=== PATIENT | male | born 1955 | race Caucasian/White ===

== ENCOUNTER 2020-05-06 07:23 | Outpatient (REF) | payer MEDICARE, SELFPAY ==
[2020-05-06 09:11] LABS: Alanine Aminotransferase 35 U/L (0-40); Albumin Level 4.2 g/dL (3.5-5.0); Alkaline Phosphatase 51 U/L (39-117); Anion Gap 12 (12-20); Aspartate Amino Transferase 31 U/L (5-37); Bilirubin Total 0.9 mg/dL (0.0-1.0); Blood Urea Nitrogen 16 mg/dL (9-16); Calcium 8.6 mg/dL (8.4-10.2); Carbon Dioxide 28 mmol/L (22-29); Chloride 104 mmol/L (96-108); Cholesterol 172 mg/dL; Estimated Glomerular Filt Rate > 60; Glucose Random 96 mg/dL (60-115); HDL Cholesterol 62 mg/dL; LDL Cholesterol Calculated 93 mg/dl; Potassium 4.6 mmol/l (3.3-5.1); Sodium 139 mmol/L (135-145); Total Protein 6.9 g/dL (6.5-8.0); Triglycerides 89 mg/dL
== END 2020-05-06 07:24 | disposition home or self-care (01) ==
LOC: HO.LAB 07:23
PROVIDERS: Visit Provider Internal Medicine
DX: I10 Essential (primary) hypertension (principal); E78.00 Pure hypercholesterolemia, unspecified
CPT/HCPCS: 80053; 80061

== ENCOUNTER 2020-10-09 11:08 | Outpatient (REF) | payer MEDICARE, SELFPAY ==
[2020-10-09 12:24] LABS: COVID-19 Test Negative (Negative)
== END 2020-10-09 11:09 | disposition home or self-care (01) ==
LOC: HO.LAB 11:08
PROVIDERS: Visit Provider Internal Medicine
DX: Z20.822 Contact with and (suspected) exposure to COVID-19 (principal)
CPT/HCPCS: 36415; 87635; C9803

== ENCOUNTER 2020-10-20 07:50 | Day surgery (SDC) | payer MEDICARE, SELFPAY ==
[2020-10-14 20:17] VITALS: BMI 24.3
--- NOTE | 2020-10-16 13:40 | HO.ANESPROP2 ---
Documented by User: Toya Winston 10/16/20 13:41 HPI - Anesthesia Eval Consult details Narrative: 65yo F for Upper Endoscopy and Colonoscopy PMFSH Active Problems Active Problems: All Active Problems (Updated 10/14/20 @ 19:11 by Marietta Moore RN) Ecchymosis (Acute) Past Medical History Medical History Hyperlipidemia Hypertension Myocardial infarction (~1997) Overactive bladder Ulcerative colitis Surgical History Surgical History H/O umbilical hernia repair (~2018) H/O vasectomy History of colonoscopy (~2015) Social History Social History Smoking Status: Never smoker Second Hand Smoke Exposure: No Use of substances other than those prescribed or required for medical reasons: No Advance Directives: No Advance Directives Information Provided: No Advance Directives on File: No Recently lost weight without trying: No Meds Allergies Allergy/AdvReac Type Severity Reaction Status Date / Time No Known Allergies Allergy Verified 10/14/20 20:17 [No Known Allergies*] Home Medications Medication Instructions Recorded Confirmed Last Taken Type aspirin 81 mg tablet,delayed 81 mg PO DAILY 09/29/20 10/20/20 10/15/20 History release atorvastatin 40 mg tablet 40 mg PO DAILY 09/29/20 10/14/20 Unknown History mesalamine 800 mg tablet,delayed 800 mg PO BID 09/29/20 10/14/20 Unknown History release metoprolol tartrate 25 mg tablet 12.5 mg PO BID 09/29/20 10/14/20 10/20/20 History tamsulosin 0.4 mg capsule 0.4 mg PO DAILY 09/29/20 10/14/20 Unknown History tolterodine 4 mg capsule,extended 4 mg PO DAILY 09/29/20 10/14/20 Unknown History release 24 hr Exam Exam Date and Time: October 16, 2020 1340 Height,Weight and Vital Signs: Height 5 ft 11 in Weight 78.925 kg Pertinent Lab Results Pertinent Lab Results: Laboratory Tests 05/06/20 07:35 Sodium 139 Potassium 4.6 Chloride 104 Carbon Dioxide 28 BUN 16 Creatinine 0.94 Assessment and Plan Assessment Anesthesia Assessment: Chart Reviewed Documented by User: Greg Shearer 10/20/20 08:57 PMFSH Past Medical History Medical History Hyperlipidemia Hypertension Myocardial infarction (~1997) Overactive bladder Ulcerative colitis Surgical History Surgical History H/O umbilical hernia repair (~2018) H/O vasectomy History of colonoscopy (~2015) Social History Social History Smoking Status: Never smoker Second Hand Smoke Exposure: No Use of substances other than those prescribed or required for medical reasons: No Advance Directives: No Advance Directives Information Provided: No Advance Directives on File: No Recently lost weight without trying: No Meds Allergies Allergy/AdvReac Type Severity Reaction Status Date / Time No Known Allergies Allergy Verified 10/14/20 20:17 [No Known Allergies*] Home Medications Medication Instructions Recorded Confirmed Last Taken Type aspirin 81 mg tablet,delayed 81 mg PO DAILY 09/29/20 10/20/20 10/15/20 History release atorvastatin 40 mg tablet 40 mg PO DAILY 09/29/20 10/14/20 Unknown History mesalamine 800 mg tablet,delayed 800 mg PO BID 09/29/20 10/14/20 Unknown History release metoprolol tartrate 25 mg tablet 12.5 mg PO BID 09/29/20 10/14/20 10/20/20 History tamsulosin 0.4 mg capsule 0.4 mg PO DAILY 09/29/20 10/14/20 Unknown History tolterodine 4 mg capsule,extended 4 mg PO DAILY 09/29/20 10/14/20 Unknown History release 24 hr Exam Airway Mallampati Class: II TM Dist: >3cm Neck ROM: Full Loose/Missing/Broken Teeth: Yes Heart: [id number] Lungs: cta b/l Assessment and Plan Assessment Anesthesia Assessment: Anesthesia Plan Discussed, PAT Visit and Chart Reviewed Final Anesthetic Review NPO: Yes ASA Class: II Final Preanesthetic Review: No Changes in Pt Med Stat, Meds/Allgs Chart Reviewed, Consent Obtained/Reviewed and Anes Risks/Benef Reviewed Patient Risk: Low Procedure Risk: Low Assessment/Block/Sedation in SS: Assess/Block/Sedation-SS Anesthetic Plan Anesthetic Plan: MAC: and Agree w/ Assess. and Plan Disposition: Standard PACU
[2020-10-20 08:37] VITALS: BP 145/87; PULSE 76; RESP 18; TEMP 36.1; O2SAT 98
[2020-10-20] MEDS: Lactated Ringers 1,000 ML 100 ML IVCONT (08:52)
--- NOTE | 2020-10-20 10:24 | PM.OP ---
Brief Operative Note Date of Service: 10/20/20 Pre-op diagnosis: Nausea, Ulcerative colitis Post-op diagnosis: other (Reflux esophagitis, Hiatal hernia, R/O Dysplasia) Procedure: EGD with biopsies and Colonoscopy to the ceum with biopsies Surgeon: Mitesh Farris Anesthesia: MAC Was an Avionics Technician used for this Procedure?: No Estimated blood loss (mL): 6.0 Pathology: other (A. Descending duodenum B. Gastric antrum C. EG Junction at 35cm D. Ascending colon E. Transverse colon F. Descending colon G. Sigmoid colon H. Rectum) Condition: stable Disposition: PACU
[2020-10-20 10:25] VITALS: BP 117/73; PULSE 74; RESP 16; TEMP 36.8; O2SAT 96
[2020-10-20 10:40] VITALS: BP 130/77; PULSE 79; RESP 16; TEMP 36.8; O2SAT 97
--- NOTE | 2020-10-20 10:54 | OP_ITS ---
SURGEON: Mitesh Farris MD INDICATIONS: The patient presents for evaluation of nausea and long-standing ulcerative colitis. Full consent has been obtained from him for both procedures, including risks of bleeding and perforation. PREOPERATIVE DIAGNOSIS: POSTOPERATIVE DIAGNOSIS: PROCEDURE PERFORMED: Esophagogastroduodenoscopy with biopsies, and colonoscopy to the cecum with biopsies. ESTIMATED BLOOD LOSS: COMPLICATIONS: ANESTHESIA: Monitored anesthesia care. ASSISTANTS: SPECIMENS: PREOPERATIVE DIAGNOSES: Nausea and ulcerative colitis. POSTOPERATIVE DIAGNOSES: Nausea and ulcerative colitis, reflux esophagitis, hiatal hernia, rule out dysplasia, diverticulosis, and internal hemorrhoids. DESCRIPTION OF PROCEDURE: The patient was placed in the left lateral decubitus position. The Olympus video gastroscope was passed in the posterior oropharynx and upper esophagus under direct vision. The scope was passed slowly into the distal esophagus. The gastroesophageal junction appeared at 35 cm. There was some evidence of reflux esophagitis with some edema and friability, but no evidence of any ulceration nor mass. There was no sign of any stricture. The scope easily entered into the stomach. There was a small to moderate-sized hiatal hernia. The scope was advanced to pylorus and duodenum was cannulated to the descending portion. The duodenum including the bulb appeared normal without mass or ulceration. Biopsies were obtained from the 2nd and 3rd portions of duodenum. The scope was withdrawn back into the stomach. The gastric antrum and body appeared normal with good peristalsis. The scope was retroflexed visualizing the proximal stomach carefully, which appeared normal, without any sign of mass or ulceration. The scope was straightened. Biopsies were obtained from the gastric antrum. The scope was withdrawn back into the esophagus. I obtained biopsies at the EG junction at 35 cm. Proximal to this, esophageal mucosa appeared normal. Scope was withdrawn from the patient. He was turned around for the colonoscopy. The digital rectal exam revealed no abnormalities. The Olympus video pediatric colonoscope was entered into the rectum and advanced to the cecum with the assistance of abdominal wall pressure. Once in the cecum, I did identify normal-appearing cecal pouch other than some very minimal chronic changes of colitis. There was no active colitis. There was no mass or ulceration. There was transillumination of light deep in the right lower quadrant. The scope was slowly withdrawn assessing all mucosal surfaces carefully. Preparation was excellent. I did not visualize any sign of colitis, polyps, nor angiodysplasia. I obtained multiple biopsies in the ascending colon, transverse colon, descending colon, sigmoid colon, and rectum. There was a mild amount of sigmoid diverticulosis. In the rectum, scope was retroflexed visualizing internal hemorrhoids, but no other pathology. The scope was straightened out and withdrawn from the patient. He tolerated the procedure well and was returned to the recovery area in stable condition. IMPRESSION: 1. History of ulcerative colitis, rule out dysplasia. 2. Diverticulosis. 3. Internal hemorrhoids. 4. Reflux esophagitis. 5. Hiatal hernia. PLAN: The results of biopsy will be checked. Assuming there is no dysplasia, I would recommend a repeat colonoscopy in 5 years. Given his nausea and endoscopy findings, I shall start him on daily omeprazole 20 mg to see if that can help improve those symptoms since I do suspect he is having some reflux, particularly night since he reports that most of the nausea is in the morning when he wakes up. He was advised to resume aspirin in 48 hours. MD TANJA Bernard/DAX / [id number]
== END 2020-10-20 11:15 | disposition home or self-care (01) ==
PROVIDERS: PCP Internal Medicine; Visit Provider Internal Medicine
PROC: (CPT 45380; principal; 2020-10-20 09:00)
DX: Z12.11 Encounter for screening for malignant neoplasm of colon (principal); K57.30 Diverticulosis of large intestine without perforation or abscess without bleeding; K64.8 Other hemorrhoids; K51.90 Ulcerative colitis, unspecified, without complications; K21.00 Gastro-esophageal reflux disease with esophagitis, without bleeding; K44.9 Diaphragmatic hernia without obstruction or gangrene; I10 Essential (primary) hypertension; I25.2 Old myocardial infarction; E78.5 Hyperlipidemia, unspecified; Z79.82 Long term (current) use of aspirin; Z79.899 Other long term (current) drug therapy
CPT/HCPCS: 45380; 43239; 88305; 88342; J3010

== ENCOUNTER 2020-11-06 10:46 | Emergency (ER) | payer MEDICARE, SELFPAY ==
--- NOTE | ~2020-11-06 | XR_ITS ---
EXAMINATION: XR CHEST CLINICAL INFORMATION: Chest pain COMPARISON: Chest 11/23/2019 TECHNIQUE: 2 views of the chest were obtained. FINDINGS: The lungs are well-expanded and clear. The heart size and pulmonary vascularity is normal. There is moderate spondylosis dorsal spine.. XR/XR chest 2V IMPRESSION: No acute cardiopulmonary process seen.
[2020-11-06 10:56] VITALS: BP 116/87; BP 121/82; PULSE 76; PULSE 90; RESP 18; TEMP 36.8; O2SAT 97; O2SAT 99; BMI 22.8
--- NOTE | 2020-11-06 11:08 | ECG_ITS ---
Test Reason : CHEST PAIN Blood Pressure : / mmHG Vent. Rate : 073 BPM Atrial Rate : 073 BPM P-R Int : 142 ms QRS Dur : 100 ms QT Int : 400 ms P-R-T Axes : 029 -23 006 degrees QTc Int : 440 ms Normal sinus rhythm Normal ECG When compared with ECG of 23-NOV-2019 13:28, No significant change was found Referred By: Leonel Smith Electronically Signed By:INESSA HARDEN MD
[2020-11-06 11:37] VITALS: PULSE 78
[2020-11-06 11:39] LABS: MANUAL DIFF FLAG NO
[2020-11-06] MEDS: Ketorolac Tromethamine 30 MG/ML VIAL IVPUSH (11:43)
[2020-11-06 11:48] LABS: Basophils Percent Auto 0.6 % (0-2); Eosinophils Absolute Auto 0.1 X10*3/uL (0.0-0.4); Eosinophils Percent Auto 1.1 % (0-4); Hematocrit 40.8 % (42-52); Hemoglobin 13.6 g/dl (14.0-18.0); Imm Gran Abs Auto 0.02 X10*3/uL (0.00-0.03); Imm Gran Pct Auto 0.3 % (0.0-0.4); Lymphocytes Absolute Auto 1.2 X10*3/uL (1.2-4.9); Lymphocytes Percent Auto 17.6 % (20-40); Mean Corpuscular HGB Conc 33.3 g/dl (31.0-36.0); Mean Corpuscular Hemoglobin 31.5 pg (27.0-33.0); Mean Corpuscular Volume 94.4 fL (80-98); Mean Platelet Volume 10.1 fL (9.4-12.4); Monocytes Absolute Auto 0.7 X10*3/uL (0.1-1.2); Monocytes Percent Auto 9.9 % (2-11); Neutrophils Absolute Auto 4.9 X10*3/uL (2.0-8.3); Neutrophils Percent Auto 70.5 % (45-73); Platelet Count 190 X10*3/uL (160-400); Red Blood Count 4.32 X10*6/uL (4.60-5.80); Red Cell Distribution Width 11.8 % (11.0-16.0)
[2020-11-06 11:49] LABS: Prothrombin Time 11.9 SEC (10.8-13.0)
[2020-11-06 11:52] LABS: Partial Thromboplastin Time 29.2 SEC (24.1-38.0)
[2020-11-06 12:11] LABS: Alanine Aminotransferase 32 U/L (0-40); Albumin Level 4.3 g/dL (3.5-5.0); Alkaline Phosphatase 51 U/L (39-117); Anion Gap 10 (12-20); Aspartate Amino Transferase 25 U/L (5-37); Bilirubin Total 0.6 mg/dL (0.0-1.0); Blood Urea Nitrogen 16 mg/dL (9-16); Calcium 9.2 mg/dL (8.4-10.2); Carbon Dioxide 27 mmol/L (22-29); Chloride 107 mmol/L (96-108); Creatinine Clr Calc Pharmacy 77.4; Estimated Glomerular Filt Rate > 60; Glucose Random 97 mg/dL (60-115); Potassium 3.9 mmol/L (3.3-5.1); Sodium 140 mmol/L (135-145); Total Protein 6.9 g/dL (6.5-8.0)
[2020-11-06 12:14] LABS: Troponin-I High Sensitivity < 3.5 ng/L (<3.5-35.0)
--- NOTE | 2020-11-06 12:49 | PC.NURSE ---
ambulated and from bathroom and xray w steady gait
[2020-11-06 12:50] VITALS: BP 146/77; PULSE 90; RESP 18; O2SAT 98
--- NOTE | 2020-11-06 13:08 | ED.CHESTPAIN ---
HPI - Chest Pain General Chief Complaint: Chest Pain Stated Complaint: CP X'S 3 DAYS,NON RAD/REPRODD Time Seen by Provider: 11/06/20 10:51 Source: patient Mode of arrival: ambulatory Limitations: no limitations History of Present Illness HPI narrative: 65-year-old male who presents emergency department for evaluation of left-sided intermittent chest pain x3 days and lightheadedness. The patient states that he has had approximately 3 episodes per day. He states the episodes could last minutes to an hour. The episodes were not related to his activity level. States that he has a history of angina and the pain feels different than his anginal pain. Patient states that he woke up this morning at 8:00 a.m. any had the pain. He describes the pain as a constant, sharp pain, the pain is slightly worse with movement but not with breathing. States that the pain is associated with lightheadedness. He denied associated vomiting, shortness of breath, pain radiating to the neck, jaw, arms or back. He states he has been having nausea for approximately 1 month, and has been evaluated by GI and started on omeprazole. Related Data Home Medications Medication Instructions Recorded Confirmed aspirin 81 mg tablet,delayed 81 mg PO DAILY 09/29/20 10/20/20 release atorvastatin 40 mg tablet 40 mg PO DAILY 09/29/20 10/14/20 mesalamine 800 mg tablet,delayed 800 mg PO BID 09/29/20 10/14/20 release metoprolol tartrate 25 mg tablet 12.5 mg PO BID 09/29/20 10/14/20 tamsulosin 0.4 mg capsule 0.4 mg PO DAILY 09/29/20 10/14/20 tolterodine 4 mg capsule,extended 4 mg PO DAILY 09/29/20 10/14/20 release 24 hr Allergies Allergy/AdvReac Type Severity Reaction Status Date / Time No Known Allergies Allergy Verified 10/14/20 20:17 [No Known Allergies*] Review of Systems Review of Systems: Yes all other systems are reviewed and are negative [facility] Past Medical History [facility] Narrative: Social history: Patient denies tobacco use, he is a former smoker but quit over 40 years ago. He drinks 3 beers per day. He denies drug use. Medical History Hyperlipidemia Hypertension Myocardial infarction (~1997) Overactive bladder Ulcerative colitis Surgical History H/O umbilical hernia repair (~2018) H/O vasectomy History of colonoscopy (~2015) Social History Social History Alcohol intake: current Alcohol intake frequency: 0-2 drinks per day Alcohol type: beer Smoking Status: Never smoker Smoked in Last 30 Days: No Second Hand Smoke Exposure: No Use of substances other than those prescribed or required for medical reasons: No Advance Directives: Yes Advance Directives Information Provided: No Advance Directives on File: No Physical Exam Vital Signs: Vital Signs: Last Vital Signs Temp 98.2 F 11/06/20 10:56 Pulse 90 11/06/20 12:50 Resp 18 11/06/20 12:50 BP 146/77 H 11/06/20 12:50 Pulse Ox 98 11/06/20 12:50 Body Mass Index 22.8 Const: General: cooperative and healthy appearing Orientation/consciousness: oriented to person and oriented to place Limitations: no limitations HENMT: Head: Yes normal to inspection, Yes normocephalic and Yes atraumatic Ears: external ears normal General nose exam: Normal external nose present Face and sinus: Yes normal facial exam Mouth: Normal oral and palatal mucosa present Throat: Yes posterior oropharynx normal Eyes: Periorbital: periorbital findings normal Eyelids: Yes eyelids normal Conjunctivae: conjunctivae normal Sclerae: sclerae normal Corneas: corneas normal Pupils: Equal, round and reactive pupils present Direct Ophthalmoscopy: normal light reflex Neck: Neck: Yes full ROM, Yes no lymphadenopathy, Yes no meningeal signs, Yes trachea midline and Yes supple Chest: Chest palpation & inspection: normal inspection of the chest and tenderness (Left chest wall) Resp: Effort & Inspection: normal respiratory effort and able to speak in complete sentences Auscultation: clear to auscultation bilaterally Cardio: Rate: regular rate Rhythm: regular rhythm Heart sounds: S1 normal heart sound present, S2 normal heart sound present and no murmurs GI: Inspection: Yes normal to inspection Palpation (GI): Soft to palpation, nontender, no guarding, not rigid and No hepatosplenomegaly present : General: Yes no CVA tenderness Back/Spine/Pelvis: Back: no CVA tenderness Cervical Spine: normal cervical lordosis Thoracic/Lumbar Spine: thoracic and lumbar spine normal to inspection Skin: Lesions: no lesions Rashes: no rashes Wounds: no wounds Neuro: General: oriented to person, oriented to place and no meningeal signs Cranial nerves: Yes Equal, round and reactive pupils present Cognition (Neuro): normal cognition Motor exam (neuro): 5/5 motor strength present throughout Extrem: General: Yes normal to inspection and Yes full ROM Psych: Appearance: well kempt Mental Status: mental status grossly normal Speech and movement: Normal speech and movement present Affect: normal affect Attitude: cooperative Thought process: Normal thought process present Thought content: Normal thought content present Course Course Course Narrative: 65-year-old male who presents emergency department for evaluation of left-sided intermittent chest pain x3 days, pain became constant this morning, pain associated with dizziness. Vital signs are unremarkable. The patient does have a history of angina but that today's pain is different than his anginal pain. Today's pain also was not related to his activity level. Physical examination did reveal some slight left-sided chest wall tenderness otherwise was unremarkable. I did order cardiac workup on the patient. Patient was ordered to get Toradol 30 mg IV. 1318: Patient's laboratory evaluation was unremarkable. The patient had a nondetectable troponin. Chest x-ray was normal. Twelve EKG revealed no evidence for ischemia or myocardial injury. I did discuss these findings with the patient. Patient's presentation and physical findings are consistent with chest wall pain. Patient did get improvement with the IV Toradol. He was advised to take ibuprofen Tylenol for pain. He was given verbal and printed instructions and discharge to home. MDM - Chest Pain Lab Data Result diagrams: 11/06/20 11:34 11/06/20 11:34 Labs: Lab Results 11/06/20 11/06/20 11/06/20 Range/Units 11:33 11:34 11:34 WBC 7.0 (4.8-10.8) X10*3/uL RBC 4.32 L (4.60-5.80) X10*6/uL Hgb 13.6 L (14.0-18.0) g/dl Hct 40.8 L (42-52) % MCV 94.4 (80-98) fL MCH 31.5 (27.0-33.0) pg MCHC 33.3 (31.0-36.0) g/dl RDW 11.8 (11.0-16.0) % Plt Count 190 (160-400) X10*3/uL MPV 10.1 (9.4-12.4) fL Immature Gran % (Auto) 0.3 (0.0-0.4) % Neut % (Auto) 70.5 (45-73) % Lymph % (Auto) 17.6 L (20-40) % [place] % (Auto) 9.9 (2-11) % Eos % (Auto) 1.1 (0-4) % Baso % (Auto) 0.6 (0-2) % Lymph # (Auto) 1.2 (1.2-4.9) X10*3/uL [place] # (Auto) 0.7 (0.1-1.2) X10*3/uL Eos # (Auto) 0.1 (0.0-0.4) X10*3/uL Baso # (Auto) 0.0 (0.0-0.2) X10*3/uL Abs Immat Gran (auto) 0.02 (0.00-0.03) X10*3/uL Absolute Neuts (auto) 4.9 (2.0-8.3) X10*3/uL Absolute Nucleated RBC 0.000 (0.0-0.012) X10*3/uL Nucleated RBC % (auto) 0.0 (0.0-0.2) /100WBC PT 11.9 (10.8-13.0) SEC INR 1.0 (0.9-1.1) APTT 29.2 (24.1-38.0) SEC Sodium (135-145) mmol/L Potassium (3.3-5.1) mmol/L Chloride (96-108) mmol/L Carbon Dioxide (22-29) mmol/L Anion Gap (12-20) BUN (9-16) mg/dL Creatinine (0.5-1.4) mg/dL Estim Creat Clear Calc Estimated GFR Random Glucose (60-115) mg/dL Calcium (8.4-10.2) mg/dL Total Bilirubin (0.0-1.0) mg/dL AST (5-37) U/L ALT (0-40) U/L Alkaline Phosphatase (39-117) U/L Troponin I High Sens < 3.5 (<3.5-35.0) ng/L Total Protein (6.5-8.0) g/dL Albumin (3.5-5.0) g/dL // Range/Units 11:34 WBC (4.8-10.8) X10*3/uL RBC (4.60-5.80) X10*6/uL Hgb (14.0-18.0) g/dl Hct (42-52) % MCV (80-98) fL MCH (27.0-33.0) pg MCHC (31.0-36.0) g/dl RDW (11.0-16.0) % Plt Count (160-400) X10*3/uL MPV (9.4-12.4) fL Immature Gran % (Auto) (0.0-0.4) % Neut % (Auto) (45-73) % Lymph % (Auto) (20-40) % [place] % (Auto) (2-11) % Eos % (Auto) (0-4) % Baso % (Auto) (0-2) % Lymph # (Auto) (1.2-4.9) X10*3/uL [place] # (Auto) (0.1-1.2) X10*3/uL Eos # (Auto) (0.0-0.4) X10*3/uL Baso # (Auto) (0.0-0.2) X10*3/uL Abs Immat Gran (auto) (0.00-0.03) X10*3/uL Absolute Neuts (auto) (2.0-8.3) X10*3/uL Absolute Nucleated RBC (0.0-0.012) X10*3/uL Nucleated RBC % (auto) (0.0-0.2) /100WBC PT (10.8-13.0) SEC INR (0.9-1.1) APTT (24.1-38.0) SEC Sodium 140 (135-145) mmol/L Potassium 3.9 (3.3-5.1) mmol/L Chloride 107 (96-108) mmol/L Carbon Dioxide 27 (22-29) mmol/L Anion Gap 10 L (12-20) BUN 16 (9-16) mg/dL Creatinine 0.92 (0.5-1.4) mg/dL Estim Creat Clear Calc 77.4 Estimated GFR > 60 Random Glucose 97 (60-115) mg/dL Calcium 9.2 D (8.4-10.2) mg/dL Total Bilirubin 0.6 (0.0-1.0) mg/dL AST 25 (5-37) U/L ALT 32 (0-40) U/L Alkaline Phosphatase 51 (39-117) U/L Troponin I High Sens (<3.5-35.0) ng/L Total Protein 6.9 (6.5-8.0) g/dL Albumin 4.3 (3.5-5.0) g/dL ECG Data ECG #1: Attestation: I personally reviewed and interpreted this ECG as follows: Interpretation: 1124: Normal sinus rhythm with a normal ID interval, slightly prolonged QRS interval 100 milliseconds, normal QTC interval. Patient had an inverted T-wave in lead 3. There was no ST segment elevation or depression. There is no old EKG for comparison. This is a normal EKG. Discharge Plan Discharge Clinical Impression: Chest pain Qualifiers: Chest pain type: other chest pain Qualified Code(s): R07.89 - Other chest pain Patient Disposition: Home, Self-Care Instructions: Costochondritis (ED) Additional Instructions: Your laboratory evaluation was unremarkable. Your troponin was below detectable limits. This is reassuring suggesting that he did not have heart damage as the cause of your pain. Your chest x-ray was normal. Your EKG was unremarkable. Your presentation and findings are consistent with inflammation of the chest wall/costochondritis. Take Advil ( ibuprofen) 200 mg pills, 2 pills every 6 hours as needed for pain. Take Tylenol (acetaminophen) 500 mg pills, 2 pills every 4 to 6 hours as needed for pain. Follow-up with your doctor in 2 days. Please return to the emergency department if your symptoms get worse or if you develop any symptoms that are concerning to you. Prescriptions: No Action aspirin [Adult Low Dose Aspirin] 81 mg tablet,delayed release (DR/EC) 81 mg PO DAILY RF: 0 tamsulosin 0.4 mg capsule 0.4 mg PO DAILY RF: 0 mesalamine 800 mg tablet,delayed release (DR/EC) 800 mg PO BID RF: 0 tolterodine 4 mg capsule,extended release 24hr 4 mg PO DAILY RF: 0 atorvastatin 40 mg tablet 40 mg PO DAILY RF: 0 metoprolol tartrate 25 mg tablet 12.5 mg PO BID RF: 0
== END 2020-11-06 13:34 | disposition home or self-care (01) ==
PROVIDERS: Emergency Provider Emergency Medicine Emergency Medical Services; PCP Internal Medicine
DX: R07.89 Other chest pain (principal); I10 Essential (primary) hypertension; E78.5 Hyperlipidemia, unspecified; I25.2 Old myocardial infarction
CPT/HCPCS: 36415; 71046; 80053; 84484; 85025; 85610; 85730; 93005; 96374; 99284; 99285; J1885

== ENCOUNTER 2020-11-25 07:30 | Outpatient (REF) | payer MEDICARE, SELFPAY ==
[2020-11-25 08:23] LABS: Hematocrit 43.7 % (42-52); Hemoglobin 14.4 g/dl (14.0-18.0); Mean Corpuscular Hemoglobin 31.4 pg (27.0-33.0); Mean Corpuscular Volume 95.4 fL (80-98); Mean Platelet Volume 10.4 fL (9.4-12.4); Platelet Count 171 X10*3/uL (160-400); Red Blood Count 4.58 X10*6/uL (4.60-5.80); Red Cell Distribution Width 11.9 % (11.0-16.0); White Blood Count 7.1 X10*3/uL (4.8-10.8)
[2020-11-25 08:50] LABS: Alanine Aminotransferase 22 U/L (0-40); Albumin Level 4.2 g/dL (3.5-5.0); Alkaline Phosphatase 55 U/L (39-117); Anion Gap 11 (12-20); Aspartate Amino Transferase 22 U/L (5-37); Bilirubin Total 1.2 mg/dL (0.0-1.0); Blood Urea Nitrogen 16 mg/dL (9-16); Calcium 9.1 mg/dL (8.4-10.2); Carbon Dioxide 29 mmol/L (22-29); Chloride 106 mmol/L (96-108); Cholesterol 173 mg/dL; Estimated Glomerular Filt Rate > 60; Glucose Random 107 mg/dL (60-115); HDL Cholesterol 59 mg/dL; LDL Cholesterol Calculated 103 mg/dl; Potassium 4.5 mmol/L (3.3-5.1); Sodium 141 mmol/L (135-145); Total Protein 6.8 g/dL (6.5-8.0); Triglycerides 55 mg/dL
[2020-11-25 08:56] LABS: Thyroid Stimulating Hormone 1.38 uIU/mL (0.32-4.0)
[2020-11-25 09:24] LABS: Glucose Urine UA NEG (NEG); Leukocyte Esterase Urine NEG (NEG); Nitrite Urine NEG (NEG); PH 7.5 (5.0-8.0); Specific Gravity - Urine 1.015 (1.005-1.025); Urine Blood NEG (NEG); Urine Ketones NEG (NEG); Urine Protein 1+ MG/DL (NEG-TRACE)
[2020-11-25 09:25] LABS: Appearance Urine HAZY; Color Urine YELLOW
[2020-11-25 09:43] LABS: Amorphous Sediment Urine TRACE /LPF; RBC Urine 0 /HPF (0); Squamous Epithelial Cell Urine TRACE /LPF; WBC Urine 0-2 /HPF (0-4)
== END 2020-11-25 07:31 | disposition home or self-care (01) ==
LOC: HO.LAB 07:30
PROVIDERS: PCP Internal Medicine; Visit Provider Internal Medicine
DX: E78.00 Pure hypercholesterolemia, unspecified (principal); I10 Essential (primary) hypertension
CPT/HCPCS: 36415; 80053; 80061; 81001; 84443; 85027

== ENCOUNTER 2021-07-14 11:32 | Outpatient (REF) | payer MEDICARE, SELFPAY ==
[2021-07-14 14:21] LABS: Prostate Specific Antigen 1.55 ng/mL (<0.05-4.0)
== END 2021-07-14 11:33 | disposition home or self-care (01) ==
LOC: HO.10HDL 11:32
PROVIDERS: Absent Provider Internal Medicine; Visit Provider Urology
DX: Z12.5 Encounter for screening for malignant neoplasm of prostate (principal); N40.1 Benign prostatic hyperplasia with lower urinary tract symptoms
CPT/HCPCS: 36415; 84153

== ENCOUNTER 2022-06-01 08:20 | Outpatient (REF) | payer MEDICARE, SELFPAY ==
[2022-06-01 10:51] LABS: MANUAL DIFF FLAG NO
[2022-06-01 11:05] LABS: Basophils Absolute Auto 0.1 X10*3/uL (0.0-0.2); Basophils Percent Auto 0.8 % (0-2); Eosinophils Absolute Auto 0.3 X10*3/uL (0.0-0.4); Eosinophils Percent Auto 4.1 % (0-4); Hematocrit 41.4 % (42.0-52.0); Hemoglobin 13.8 g/dl (14.0-18.0); Imm Gran Abs Auto 0.01 X10*3/uL (0.00-0.03); Imm Gran Pct Auto 0.2 % (0.0-0.4); Lymphocytes Absolute Auto 1.7 X10*3/uL (1.2-4.9); Lymphocytes Percent Auto 26.3 % (20-40); Mean Corpuscular HGB Conc 33.3 g/dl (31.0-36.0); Mean Corpuscular Hemoglobin 31.8 pg (27.0-33.0); Mean Corpuscular Volume 95.4 fL (80.0-98.0); Mean Platelet Volume 11.4 fL (9.4-12.4); Monocytes Absolute Auto 0.6 X10*3/uL (0.1-1.2); Monocytes Percent Auto 9.9 % (2-11); Neutrophils Absolute Auto 3.7 x10*3/uL (2.0-8.3); Neutrophils Percent Auto 58.7 % (45-73); Platelet Count 181 X10*3/uL (160-400); Red Blood Count 4.34 X10*6/uL (4.60-5.80); Red Cell Distribution Width 11.9 % (11.0-16.0); White Blood Count 6.4 X10*3/uL (4.8-10.8)
[2022-06-01 11:46] LABS: Alanine Aminotransferase 30 U/L (0-40); Albumin Level 4.2 g/dL (3.5-5.0); Alkaline Phosphatase 55 U/L (39-117); Anion Gap 11 (12-20); Aspartate Amino Transferase 28 U/L (5-37); Bilirubin Total 1.1 mg/dL (0.0-1.0); Blood Urea Nitrogen 16 mg/dL (9-16); Calcium 8.8 mg/dL (8.4-10.2); Carbon Dioxide 27 mmol/L (22-29); Chloride 106 mmol/L (96-108); Cholesterol 177 mg/dL; Estimated Glomerular Filt Rate > 60; Free T4 (Free Thyroxine) 0.93 ng/dL (0.71-1.85); Glucose Fasting 97 mg/dL (60-99); HDL Cholesterol 57 mg/dL; LDL Cholesterol Calculated 105 mg/dl; Sodium 140 mmol/L (135-145); Thyroid Stimulating Hormone 1.73 uIU/mL (0.32-4.0); Total Protein 6.8 g/dL (6.5-8.0); Triglycerides 79 mg/dL
== END 2022-06-01 08:21 | disposition home or self-care (01) ==
LOC: HO.10HDL 08:20
PROVIDERS: Absent Provider Internal Medicine; Referring Provider Urology; Visit Provider Internal Medicine
DX: E78.00 Pure hypercholesterolemia, unspecified (principal); I10 Essential (primary) hypertension
CPT/HCPCS: 36415; 80053; 80061; 84439; 84443; 85025

== ENCOUNTER 2022-06-30 10:13 | Outpatient (REF) | payer MEDICARE, SELFPAY ==
[2022-06-30 12:09] LABS: Prostate Specific Antigen 0.53 ng/mL (<0.05-4.0)
== END 2022-06-30 10:14 | disposition home or self-care (01) ==
LOC: HO.10HDL 10:13
PROVIDERS: Absent Provider Internal Medicine; Visit Provider Physician Assistant
DX: Z12.5 Encounter for screening for malignant neoplasm of prostate (principal); N32.81 Overactive bladder
CPT/HCPCS: 36415; 84153

== ENCOUNTER 2022-12-29 07:22 | Outpatient (REF) | payer MEDICARE, SELFPAY ==
[2022-12-29 07:38] LABS: MANUAL DIFF FLAG NO
[2022-12-29 08:49] LABS: Basophils Absolute Auto 0.1 X10*3/uL (0.0-0.2); Basophils Percent Auto 0.8 % (0-2); Eosinophils Absolute Auto 0.3 X10*3/uL (0.0-0.4); Eosinophils Percent Auto 4.6 % (0-4); Hematocrit 44.5 % (42.0-52.0); Hemoglobin 14.8 g/dl (14.0-18.0); Imm Gran Abs Auto 0.02 X10*3/uL (0.00-0.03); Imm Gran Pct Auto 0.3 % (0.0-0.4); Lymphocytes Absolute Auto 2.1 X10*3/uL (1.2-4.9); Lymphocytes Percent Auto 28.2 % (20-40); Mean Corpuscular HGB Conc 33.3 g/dl (31.0-36.0); Mean Corpuscular Hemoglobin 31.7 pg (27.0-33.0); Mean Corpuscular Volume 95.3 fL (80.0-98.0); Mean Platelet Volume 10.9 fL (9.4-12.4); Monocytes Absolute Auto 0.7 X10*3/uL (0.1-1.2); Monocytes Percent Auto 9.8 % (2-11); Neutrophils Absolute Auto 4.2 x10*3/uL (2.0-8.3); Neutrophils Percent Auto 56.3 % (45-73); Platelet Count 185 X10*3/uL (160-400); Red Blood Count 4.67 X10*6/uL (4.60-5.80); Red Cell Distribution Width 12.2 % (11.0-16.0); White Blood Count 7.5 X10*3/uL (4.8-10.8)
[2022-12-29 09:30] LABS: Alanine Aminotransferase 28 U/L (0-40); Albumin Level 4.1 g/dL (3.5-5.0); Alkaline Phosphatase 59 U/L (39-117); Anion Gap 13 (12-20); Aspartate Amino Transferase 25 U/L (5-37); Bilirubin Total 0.9 mg/dL (0.0-1.0); Blood Urea Nitrogen 17 mg/dL (9-16); Calcium 9.2 mg/dL (8.4-10.2); Carbon Dioxide 24 mmol/L (22-29); Chloride 108 mmol/L (96-108); Cholesterol 180 mg/dL; Estimated Glomerular Filt Rate > 60; Glucose Random 100 mg/dL (60-115); HDL Cholesterol 56 mg/dL; LDL Cholesterol Calculated 111 mg/dl; Potassium 4.1 mmol/L (3.3-5.1); Sodium 141 mmol/L (135-145); Total Protein 7.1 g/dL (6.5-8.0); Triglycerides 68 mg/dL
[2022-12-29 09:47] LABS: Thyroid Stimulating Hormone 2.49 uIU/mL (0.32-4.0)
== END 2022-12-29 07:23 | disposition home or self-care (01) ==
LOC: HO.LAB 07:22
PROVIDERS: PCP Internal Medicine; Visit Provider Internal Medicine
DX: R00.2 Palpitations (principal); I10 Essential (primary) hypertension; K51.90 Ulcerative colitis, unspecified, without complications; E78.00 Pure hypercholesterolemia, unspecified; R32 Unspecified urinary incontinence; R73.01 Impaired fasting glucose
CPT/HCPCS: 36415; 80053; 80061; 84443; 85025

== ENCOUNTER 2023-01-19 10:29 | Outpatient (AMB) | payer MEDICARE, SELFPAY ==
--- NOTE | 2023-01-19 10:32 | A.OFFVIS_ITS ---
Intake Vital Signs 01/19/23 10:33 Height 5 ft 9 in Weight 179 lb 14.355 oz BMI 26.6 BP 120/84 Blood Pressure Location Lt brachial Position Sitting Pulse 66 Pulse Source Monitor Intake Visit Reasons: Re-establish care/Cam[place]/Chest pain, palpitations Intake Note: New patient visit with EKG for evaluation of chest pain and palpitations, patient re-establishing care last seen 12/20/2019. 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 Accompanied by: Self / Same As Patient Allergies No Known Allergies [No Known Allergies*] Allergy (Verified 01/19/23 10:34) Medication List - Last Reconciled 01/19/23 by Crow Negrete MD aspirin (Adult Low Dose Aspirin) 81 mg PO DAILY atorvastatin 40 mg PO DAILY cholecalciferol (vitamin D3) 25 mcg PO DAILY lorazepam 0.5 mg PO DAILY PRN mecobalamin (vitamin B12) 500 mcg PO DAILY mesalamine 800 mg PO BID metoprolol tartrate 12.5 mg PO BID mirabegron ER (Myrbetriq) 50 mg PO DAILY omeprazole 20 mg PO DAILY tamsulosin 0.4 mg PO DAILY HPI HPI Comments History of Present Illness Details Thank you for ease tablet jose watt's in cardiology consultation today. He is a pleasant 67-year-old male with prior history of anxiety, hyperlipidemia, presents to me because he is having some discomfort in the chest. In mid November while he was walking his usual walked he developed retros ternal chest pressure which limited his walking capacity and had to stop and return back home. He then relax and the symptoms resolved. Since then he has not had recurrent exertional chest discomfort which is surprising. He said he has been doing his [employer] work yesterday at extensive pace and had no recurrent chest pain. However is also bothered by symptoms of palpitations. Two episodes 1 which woke him up from sleep when he fell rapid heart rate and other own while he was doing exertional activity at home. He had no associated lightheadedness, shortness of breath. No syncopal episodes. Denies any other symptoms. He said usually remains very active. He denies any heart failure symptoms. Takes all his medications regularly. [facility] Medical History Hyperlipidemia Hypertension Myocardial infarction (~1997) Overactive bladder Ulcerative colitis Surgical History H/O umbilical hernia repair (~2018) H/O vasectomy History of colonoscopy (~2015) Family History Mother Colon cancer Father Heart attack Social History Alcohol intake: current Alcohol intake frequency: 0-2 drinks per day Alcohol type: beer Patient Tobacco Use Status: Former Tobacco user Quit Date: 1977 Years Smoked: 5 +/- Second Hand Smoke Exposure: No Review of Systems Const Denies chills, Denies daytime sleepiness, Denies fatigue, Denies fever(s), Denies frequent falls, Denies night sweats, Denies snoring, Denies weakness, Denies weight gain and Denies weight loss Eyes Denies loss of vision ENT Denies dizziness and Denies hearing loss Card Denies chest pain, Denies chest pain with activity, Denies syncope, Denies rapid heart rate, Denies edema, Denies claudication, Denies leg edema, Denies lightheadedness, Denies palpitations, Denies dyspnea, Denies dyspnea on exertion and Denies orthopnea Resp Denies cough, Denies excessive phlegm production, Denies dyspnea, Denies dyspnea on exertion, Denies snoring and Denies wheezing GI Denies abdominal pain, Denies hematochezia, Denies change in bowel habits, Denies change in stool character, Denies heartburn, Denies nausea and Denies vomiting Denies hematuria, Denies dysuria and Denies urinary frequency Musc Denies arthralgias, Denies muscle weakness, Denies numbness and Denies tingling Skin/Breast Denies nail changes and Denies rash Neuro Denies Abnormal speech present, Denies dizziness, Denies syncope, Denies frequent falls, Denies loss of vision, Denies memory loss, Denies numbness, Denies tingling and Denies weakness Psych Denies depression and Denies memory loss Endo Denies fatigue and Denies palpitations Aller/Immun Denies wheezing Physical Exam Vital Signs: Last Vital Signs Pulse 66 01/19/23 10:33 BP 120/84 01/19/23 10:33 BMI result Body Mass Index 26.6 Const General: cooperative, comfortable, no acute distress, well developed, alert, awake, Physically active and anxious Nutritional Appearance: average body habitus and well nourished Orientation/consciousness: patient oriented x3 Limitations: no limitations HEENT Head: Yes normocephalic and Yes atraumatic Neck Neck: Yes trachea midline, Yes supple and Yes no JVD Chest Chest palpation & inspection: normal inspection of the chest Resp Effort & Inspection: normal respiratory effort Auscultation: clear to auscultation bilaterally Cardio Jugular venous distension: no JVD Palpation: normal PMI Rate: regular rate Rhythm: regular rhythm Heart sounds: S1 normal heart sound present, S2 normal heart sound present, no click, no gallops, no murmurs and no rubs GI Auscultation: normal bowel sounds Skin General skin exam: no rashes or lesions noted Neuro General: patient oriented x3 and no focal motor deficits Speech: No Abnormal speech present Extrem General: Yes no clubbing, cyanosis or edema Office Procedures EKG Details: EKG shows normal sinus rhythm with normal EKG [id number], Complete Assessment & Plan Assessment & Plan (1) Exertional chest pain: Code(s): R07.9 - Chest pain, unspecified Plan: Exertional chest pain in this 67-year-old gentleman with multiple risk factors including family history hyperlipidemia. He had workup done 3 years ago for stress-induced chest discomfort which at high workload had shown normal treadmill stress test. However he has significant risk factors and likelihood of obstructive coronary artery disease is high. Would suggest him to undergo coronary CTA for further assessment of his symptoms. Also suggest an echocardiogram to assess LV systolic and diastolic function as well as to evaluate for LVH and/or pulmonary hypertension. These tests will be scheduled in near future. Further treatment based on the findings. If he has significant obstructive coronary artery disease may require invasive cardiac catheterization. This was discussed with him. Currently continue metoprolol therapy. Advised to seek emergency care if he has sudden-onset significant chest pressure that is not relieved with resting. (2) Palpitations: Code(s): R00.2 - Palpitations Plan: Symptoms of palpitations which could represent either extra systoles and/or short runs of SVT/atrial fibrillation. Would suggest a 30 day event monitor. Further treatment based on the findings for now continue metoprolol therapy. Avoidance of stimulants was discussed. Stress mitigation strategies to be pursued. Will follow up in the clinic in 2 months time, sooner p.r.n.. Thank you for allowing me to partake in his care Coding Level of Care Code New Pt Level 4 (46342) Diagnoses Exertional chest pain R07.9 Palpitations R00.2 CPT Codes EKG - CPT: 17300-[id number], Complete ([id number])
[2023-01-19 10:33] VITALS: BP 120/84; PULSE 66; BMI 26.6
== END 2023-01-19 10:56 | disposition home or self-care (01) ==
PROVIDERS: PCP Internal Medicine; Referring Provider Internal Medicine; Visit Provider Internal Medicine Cardiovascular Disease
DX: R07.9 Chest pain, unspecified (principal); R00.2 Palpitations
CPT/HCPCS: 93010; 99214

== ENCOUNTER → 2023-01-19 10:29 | Outpatient (BNVA) | payer MEDICARE, SELFPAY | PROVIDERS: PCP Internal Medicine; Referring Provider Internal Medicine; Visit Provider Internal Medicine Cardiovascular Disease | DX: R07.9 Chest pain, unspecified (principal); R00.2 Palpitations | CPT/HCPCS: 93005 ==

== ENCOUNTER 2023-02-24 08:22 | Outpatient (REF) | payer MEDICARE, SELFPAY ==
[2023-02-24 09:05] LABS: Anion Gap 10 (12-20); Blood Urea Nitrogen 14 mg/dL (9-16); Calcium 9.1 mg/dL (8.4-10.2); Carbon Dioxide 29 mmol/L (22-29); Chloride 106 mmol/L (96-108); Estimated Glomerular Filt Rate > 60; Glucose Random 143 mg/dL (60-115); Potassium 4.6 mmol/L (3.3-5.1); Sodium 140 mmol/L (135-145)
== END 2023-02-24 08:23 | disposition home or self-care (01) ==
LOC: HO.LAB 08:22
PROVIDERS: PCP Internal Medicine; Visit Provider Internal Medicine Cardiovascular Disease
DX: R07.9 Chest pain, unspecified (principal)
CPT/HCPCS: 36415; 80048

== ENCOUNTER 2023-04-05 09:58 | Outpatient (AMB) | payer MEDICARE, SELFPAY ==
[2023-04-05 10:00] VITALS: BP 120/82; PULSE 98; BMI 27.2
--- NOTE | 2023-04-05 10:00 | A.OFFVIS_ITS ---
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 Allergies No Known Allergies [No Known Allergies*] Allergy (Verified 04/05/23 10:03) Medication List - Last Reconciled 04/05/23 by RC Bello aspirin (Adult Low Dose Aspirin) 81 mg PO DAILY atorvastatin 40 mg PO DAILY cholecalciferol (vitamin D3) 25 mcg PO DAILY lorazepam 0.5 mg PO DAILY PRN mecobalamin (vitamin B12) 500 mcg PO DAILY mesalamine 800 mg PO BID metoprolol tartrate 12.5 mg PO BID mirabegron ER (Myrbetriq) 50 mg PO DAILY omeprazole 20 mg PO DAILY tamsulosin 0.4 mg PO DAILY HPI f/up 30 day/ echo/ cta/ NS HPI Details Stone is a 67-year-old male past medical history of hypertension and hyperlipidemia who recently reported exertional chest discomfort. He underwent a coronary CTA scan and presents for follow-up. Today he reports that he has not had any recurrent exertional chest discomfort like he had back in November. He has had some soreness in the chest region, mostly on the left that can be brought on by certain positions such as raising his left arm. In the past he was diagnosed with costochondritis. He denies shortness of breath, presyncope, syncope, PND, orthopnea or edema. He had previously described 1 episode of heart palpitations when he was doing extreme exertion. He has not noticed any recurrent episodes of palpitations since that time. This is not a concern for him at present. He has been taking his meds as directed. [facility] Medical History (Updated 04/05/23 @ 12:05 by RC Bello) Myocardial infarction (~1997) Overactive bladder Hypertension Hyperlipidemia Ulcerative colitis Surgical History H/O umbilical hernia repair (~2018) H/O vasectomy History of colonoscopy (~2015) Family History Mother Colon cancer Father Heart attack Social History Alcohol intake: current Alcohol intake frequency: 0-2 drinks per day Alcohol type: beer Patient Tobacco Use Status: Former Tobacco user Quit Date: 1977 Years Smoked: 5 +/- Second Hand Smoke Exposure: No Review of Systems Const All systems reviewed & are unremarkable except as noted in HPI and below Card Reports chest pain Physical Exam Vital Signs: Last Vital Signs Pulse 98 04/05/23 10:00 BP 120/82 04/05/23 10:00 BMI result Body Mass Index 27.2 Const General: cooperative, healthy appearing, comfortable and no acute distress Orientation/consciousness: patient oriented x3 Neck Neck: Yes normal visual inspection and Yes no JVD Resp Effort & Inspection: normal respiratory effort Auscultation: clear to auscultation bilaterally, no crackles, no rales, no rhonchi and no wheezes Cardio Jugular venous distension: no JVD Rate: regular rate Rhythm: regular rhythm Heart sounds: S1 normal heart sound present, S2 normal heart sound present, no murmurs and no rubs Neuro General: patient oriented x3 Extrem General: Yes normal to inspection Psych Appearance: grossly normal Mental Status: mental status grossly normal Speech and movement: Normal speech and movement present Assessment & Plan Assessment & Plan (1) Exertional chest pain: Code(s): R07.9 - Chest pain, unspecified Plan: Episode of exertional chest discomfort that occurred while walking back in November 2022. No recurrent episodes since that time. He does have atypical sounding chest discomfort, likely chest wall in nature. Cardiac risk factors of hypertension and hyperlipidemia. He underwent a CTA of the coronary arteries on 03/04/2023 showing left main mild calcification less than 25% stenosis, lad mild calcification proximally less than 40% stenosis, left circumflex normal, RCA mild calcification no significant stenosis. Reviewed this report with him in detail. At this time he has nonobstructive coronary artery disease. His chest discomfort is not likely cardiac in nature. Signs and symptoms of angina reviewed. Will have him continue on aspirin 81 mg daily. Atorvastatin with ideal LDL goal less than 70. Labs done 12/29/2022 showed LDL 111. Will increase his atorvastatin up to 80 mg daily, as it seems his labs were done at 40 mg daily. Recommend fasting lipid profile again in 2-3 months. Will check echocardiogram to assess for any structural heart disease, plan to call him with results. Cardiology follow-up in 6 months, sooner if needed. (2) CAD (coronary atherosclerotic disease): Comment: CTA of coronary arteries 03/04/2023, left main mild calcifications less than 25% stenosis, proximal LAD less than 40% stenosis, left circumflex normal, RCA mild calcification, no significant stenosis Code(s): I25.10 - Atherosclerotic heart disease of [place] coronary artery without angina pectoris Qualifiers: Associated angina: without angina Coronary Disease-Associated Artery/Lesion type: [place] artery [place] vs. transplanted heart: [place] heart Qualified Code(s): I25.10 - Atherosclerotic heart disease of [place] coronary artery without angina pectoris Plan: Nonobstructive coronary artery disease (3) Palpitations: Code(s): R00.2 - Palpitations Plan: On last visit he reported an episode of heart palpitations following extreme exertional activity. He has not had recurrent palpitations since that time. This is not a concern for him at present. Will hold off on cardiac monitoring. (4) Hypertension: Code(s): I10 - Essential (primary) hypertension Qualifiers: Hypertension type: primary hypertension Qualified Code(s): I10 - Essential (primary) hypertension Plan: Well controlled at present. (5) Hyperlipidemia: Code(s): E78.5 - Hyperlipidemia, unspecified Qualifiers: Hyperlipidemia type: unspecified Qualified Code(s): E78.5 - Hyperlipidemia, unspecified Plan: LDL goal less than 70 in patient with CAD. Not optimally controlled at present. Increasing atorvastatin as above Orders: Orders CA echo transthoracic complete Today I10 - Essential (primary) hypertension, I25.10 - Atherosclerotic heart disease of [place] coronary artery without angina pectoris Medications: New atorvastatin Dose increased from 40mg up to 80mg for cholesterol control 80 mg PO BEDTIME 90 tabs 3RF Coding Level of Care Code Est Pt Level 3 (01913) Diagnoses Exertional chest pain R07.9 Atherosclerosis of [place] coronary artery of [place] heart without angina pectoris I25.10 Associated angina: without angina Coronary Disease-Associated Artery/Lesion type: [place] artery [place] vs. transplanted heart: [place] heart Palpitations R00.2 Primary hypertension I10 Hypertension type: primary hypertension Hyperlipidemia, unspecified hyperlipidemia type E78.5 Hyperlipidemia type: unspecified Time Spent (min) 22
== END 2023-04-05 10:32 | disposition home or self-care (01) ==
PROVIDERS: PCP Internal Medicine; Visit Provider Nurse Practitioner Family
DX: R07.9 Chest pain, unspecified (principal); I25.10 Atherosclerotic heart disease of native coronary artery without angina pectoris; R00.2 Palpitations; I10 Essential (primary) hypertension; E78.5 Hyperlipidemia, unspecified
CPT/HCPCS: 99213

== ENCOUNTER → 2023-04-05 09:58 | Outpatient (BNVA) | payer MEDICARE, SELFPAY | PROVIDERS: PCP Internal Medicine; Visit Provider Nurse Practitioner Family | DX: I25.10 Atherosclerotic heart disease of native coronary artery without angina pectoris (principal); I10 Essential (primary) hypertension; R07.9 Chest pain, unspecified; R00.2 Palpitations; E78.5 Hyperlipidemia, unspecified | CPT/HCPCS: 99212 ==

== ENCOUNTER → 2023-05-03 09:50 | Outpatient (REF) | payer MEDICARE, SELFPAY ==
--- NOTE | 2023-05-03 09:52 | CA_ITS ---
Transthoracic Echocardiogram Patient (Last, First, Middle): Stone Darling T Gender: Male Date of : 1955 Age: 67 Procedure Date: 05/03/2023 Procedure Type: Transthoracic Echocardiogram Location: OP Height: 180.34 cm Weight: 79.38 kg BSA: 1.99 m2 Heart Rate: 66 bpm BP: 118 / 74 mmHg Garbage Man: VH Referring MD: Enma Douglas STONE FABRICATORItzelC Symptoms: I25.10 - Atherosclerotic heart disease of [place] coronary artery without... Study Quality: Fair ECG Rhythm: Sinus Conclusions: - The left ventricular systolic function is normal. The visually estimated ejection fraction is between 55-60%. - There is mildly increased left ventricular wall thickness. - No obvious valvular pathology seen on this study. Findings Left Ventricle Normal left ventricular cavity size. There is mildly increased left ventricular wall thickness. The left ventricular systolic function is normal. The visually estimated ejection fraction is between 55-60%. There is no evidence of regional wall motion abnormalities. Diastolic function is normal for age. Right Ventricle Normal right ventricular cavity size and systolic function. Atria Both atria are normal in size. Aortic Valve There is a normal trileaflet aortic valve. There is no aortic valve stenosis. There is no aortic valve regurgitation. Mitral Valve The mitral valve appears normal. There is no mitral valve regurgitation. There is no mitral valve stenosis. Pulmonic Valve The pulmonic valve is likely normal. Tricuspid Valve Normal tricuspid valve structure. There is mild tricuspid valve regurgitation. There is no evidence of pulmonary hypertension. Great Vessels The asc aorta is normal in size. Venous The inferior vena cava is normal in size and collapses greater than 50% with inspiration. Pericardium/Pleural There is no evidence of pericardial effusion. Prior Study Comparison No significant change compared to prior study dated: 12/14/2019. Recommendations, Care & Conclusions No obvious valvular pathology seen on this study. Measurements 2D Linear Measurements IVSd: 1.29 0.6-0.9/0.6-1.0 cm LVIDd: 4.26 3.9-5.3/4.2-5.9 cm LVIDd Index: 2.14 2.4-3.2/2.2-3.1 cm/m2 LVIDs: 2.69 2.0-3.6 cm LVPWd: 1.25 0.7-1.1 cm Ao Root: 3.20 2.1-3.5 cm LA Diam: 3.10 2.7-3.8/3.0-4.0 cm LAIDs Index: 1.56 1.5-2.3 cm/m2 LV Mass: 246.61 67-162/88-224 g LV Mass Index: 123.92 43-95/49-115 g/m2 LVOT Diam: 2.30 3.0+(-)1.3 cm 2D Systolic Function EF 4C: 53.90 >55% EF 2C: 48.50 >55% Mitral Valve MV Pk E: 0.54 MV PK A: 0.84 MV Decel Time: 220.00 E/A: 0.60 E'Lateral: 5.87 E'Medial: 6.42 E/E' Med: 8.40 E/E' Lat: 9.20 PHT: 64.00 MVA PHT: 3.44 Decel Hanson: 2.45 Aortic Valve AoV Pk Prelsey: 1.15 AoV Mn Presley: 0.72 AoV VTI: 0.27 AoV Pk Grad: 5.00 Aov Mn Grad: 3.00 LEYDA Cont.VTI: 3.25 LVOT LVOT Pk Presley: 0.85 LVOT Mn Presley: 0.56 LVOT VTI: 0.21 LVOT Pk Grad: 3.00 LVOT Mn Grad: 2.00 LVOT Diam: 2.30 LVOT Area: 4.15 Diastolic Function MV Pk E: 0.54 MV Pk A: 0.84 E/A: 0.60 E'Medial: 6.42 E/E' Med: 8.40 E' Laterial: 5.87 E/E' Lat: 9.20 Right Ventricle TAPSE (mm): 20.00 TVS' Presley: 10.00 Tricuspid Valve TR Pk Presley: 2.09 TR Pk Grad: 17.00 RA Press: 3.00 RVSP: 20.00 Great Vessels Aorta Ao Root-2D: 3.20 2.0-3.7 cm Ao Asc: 3.70 2.1-3.4 cm Pulmonary Valve PV Pk Presley: 0.88 Peak PV Grad: 3.00 Updated in Other Vendor System with Status of Final Ayad Dee MD electronically signed on 05/04/2023 5:00:30 PM with status of Final
== END ==
LOC: HO.CARD 09:50
PROVIDERS: PCP Internal Medicine; Visit Provider Nurse Practitioner Family
DX: I25.10 Atherosclerotic heart disease of native coronary artery without angina pectoris (principal); I10 Essential (primary) hypertension
CPT/HCPCS: 93306

== ENCOUNTER → 2023-05-03 09:52 | Outpatient (BNV) | payer MEDICARE, SELFPAY | PROVIDERS: PCP Internal Medicine; Visit Provider Internal Medicine | DX: I25.10 Atherosclerotic heart disease of native coronary artery without angina pectoris (principal); I36.1 Nonrheumatic tricuspid (valve) insufficiency | CPT/HCPCS: 93306 ==

== ENCOUNTER 2023-07-27 07:46 | Outpatient (REF) | payer MEDICARE, SELFPAY ==
[2023-07-27 07:58] LABS: MANUAL DIFF FLAG NO
[2023-07-27 08:05] LABS: Basophils Absolute Auto 0.1 X10*3/uL (0.0-0.2); Basophils Percent Auto 0.9 % (0-2); Eosinophils Absolute Auto 0.2 X10*3/uL (0.0-0.4); Eosinophils Percent Auto 2.8 % (0-4); Hematocrit 43.2 % (42.0-52.0); Hemoglobin 14.7 g/dl (14.0-18.0); Imm Gran Abs Auto 0.02 X10*3/uL (0.00-0.03); Imm Gran Pct Auto 0.3 % (0.0-0.4); Lymphocytes Absolute Auto 1.9 X10*3/uL (1.2-4.9); Lymphocytes Percent Auto 33.5 % (20-40); Mean Corpuscular Hemoglobin 32.2 pg (27.0-33.0); Mean Corpuscular Volume 94.7 fL (80.0-98.0); Mean Platelet Volume 9.8 fL (9.4-12.4); Monocytes Absolute Auto 0.6 X10*3/uL (0.1-1.2); Monocytes Percent Auto 10.1 % (2-11); Neutrophils Percent Auto 52.4 % (45-73); Platelet Count 180 X10*3/uL (160-400); Red Blood Count 4.56 X10*6/uL (4.60-5.80); Red Cell Distribution Width 11.9 % (11.0-16.0); White Blood Count 5.7 X10*3/uL (4.8-10.8)
[2023-07-27 08:31] LABS: Alanine Aminotransferase 31 U/L (0-40); Albumin Level 4.1 g/dL (3.5-5.0); Alkaline Phosphatase 58 U/L (39-117); Anion Gap 12 (12-20); Aspartate Amino Transferase 30 U/L (5-37); Bilirubin Total 0.9 mg/dL (0.0-1.0); Blood Urea Nitrogen 16 mg/dL (9-16); Calcium 9.9 mg/dL (8.4-10.2); Carbon Dioxide 27 mmol/L (22-29); Chloride 109 mmol/L (96-108); Cholesterol 164 mg/dL (<200); Estimated Glomerular Filt Rate > 60; Glucose Random 108 mg/dL (60-115); HDL Cholesterol 58 mg/dL (>40); LDL Cholesterol Calculated 93 mg/dL (<100); Potassium 4.6 mmol/L (3.3-5.1); Sodium 143 mmol/L (135-145); Total Protein 7.2 g/dL (6.5-8.0); Triglycerides 65 mg/dL (<150)
[2023-07-27 08:39] LABS: TSH reflex Free T4 1.51 uIU/mL (0.32-4.0)
[2023-07-27 08:51] LABS: Vitamin B12 953 pg/mL (200-900)
[2023-07-27 10:41] LABS: Appearance Urine Clear; Color Urine Yellow; Glucose Urine UA Negative (Negative); Leukocyte Esterase Urine Negative (Negative); Nitrite Urine Negative (Negative); PH 5.5 (5.0-9.0); Urine Blood Negative (Negative); Urine Ketones Negative (Negative); Urine Protein Negative (Neg-Trace)
[2023-07-31 02:23] LABS: Methylmalonic Acid 76 nmol/L (87-318)
== END 2023-07-27 07:47 | disposition home or self-care (01) ==
LOC: HO.LAB 07:46
PROVIDERS: PCP Internal Medicine; Visit Provider Internal Medicine
DX: E78.00 Pure hypercholesterolemia, unspecified (principal); R32 Unspecified urinary incontinence; I10 Essential (primary) hypertension; E53.8 Deficiency of other specified B group vitamins
CPT/HCPCS: 36415; 80053; 80061; 81003; 82607; 83921; 84443; 85025

== ENCOUNTER 2023-08-25 12:10 | Outpatient (REF) | payer MEDICARE, SELFPAY ==
[2023-08-25 14:03] LABS: Prostate Specific Antigen 0.68 ng/mL (<0.05-4.0)
== END 2023-08-25 12:11 | disposition home or self-care (01) ==
LOC: HO.10HDL 12:10
PROVIDERS: Visit Provider Physician Assistant
DX: N40.1 Benign prostatic hyperplasia with lower urinary tract symptoms (principal); N13.8 Other obstructive and reflux uropathy; Z12.5 Encounter for screening for malignant neoplasm of prostate
CPT/HCPCS: 36415; 84153

== ENCOUNTER 2023-09-16 10:02 | Outpatient (AMB) | payer MEDICARE, SELFPAY ==
[2023-09-16 10:08] VITALS: BP 140/90; PULSE 87; TEMP 36.7; O2SAT 96; BMI 27.8
--- NOTE | 2023-09-16 10:08 | AM.OFFWIN_ITS ---
Intake Vital Signs 09/16/23 10:08 Height 5 ft 9 in Weight 188 lb BMI 27.8 BP 140/90 H Blood Pressure Location Lt brachial Position Sitting Pulse 87 Pulse Source Pulse Oximeter Temp 98.0 F Temp Source Temporal Artery Scan Pulse Oximetry (%) 96 Oxygen Delivery Method Room Air Intake Visit Reasons: EP bilat clogged ears x1 week Intake Note: pt is here today for bilat clogged ear started 1 week ago Patient Tobacco Use Status: Former Tobacco user Quit Date: 1977 Allergies No Known Allergies [No Known Allergies*] Allergy (Verified 09/16/23 10:12) Do you need a note to return to daycare/school/sports/work: No HPI HPI Comments History of Present Illness Details This is a 68-year-old male presenting for evaluation of a clogged sensation that he has had in his ears, left > right over the past four days. The patient states on Tuesday he got out of the shower and felt that his left ear was significantly blocked. Patient denies having any pain and has not used any [id number] medication for treatment of these symptoms. Patient denies having any fevers, chills or sore throat. [facility] Medical History Myocardial infarction (~1997) Overactive bladder Hypertension Hyperlipidemia Ulcerative colitis Surgical History H/O umbilical hernia repair (~2018) H/O vasectomy History of colonoscopy (~2015) Family History Mother Colon cancer Father Heart attack Social History Alcohol intake: current Alcohol intake frequency: 0-2 drinks per day Alcohol type: beer Patient Tobacco Use Status: Former Tobacco user Quit Date: 1977 Years Smoked: 5 +/- Second Hand Smoke Exposure: No Review of Systems Const All systems reviewed & are unremarkable except as noted in HPI and below Reports as per HPI, Denies chills, Denies fever(s) and Denies headache(s) Eyes Reports as per HPI ENT Denies otalgia, Denies facial pain, Denies headache(s), Reports hearing loss (ears feel clogged, L > R) and Denies sore throat Neuro Denies headache(s) Physical Exam Vital Signs: Last Vital Signs Temp 98.0 F 09/16/23 10:08 Pulse 87 09/16/23 10:08 BP 140/90 H 09/16/23 10:08 Pulse Ox 6 L 09/16/23 10:08 Oxygen Delivery Method Room Air 09/16/23 10:08 BMI result Body Mass Index 27.8 POX 96% on room air. Const General: cooperative, healthy appearing, comfortable, no acute distress and well developed Nutritional Appearance: average body habitus Orientation/consciousness: patient oriented x3 Limitations: no limitations HEENT Head: Yes normal to inspection and Yes normocephalic Ears: hearing grossly normal bilaterally, external ears normal and unable to visualize TM (cerumen impaction bilaterally; no erythema, no retained foreign body) bilaterally General nose exam: Normal external nose present Face and sinus: Yes normal facial exam and Yes sinuses nontender Mouth: Normal oral and palatal mucosa present Throat: Yes posterior oropharynx normal Eyes Alignment and Position: alignment normal Eyelids: Yes eyelids normal Conjunctivae: conjunctivae normal Sclerae: sclerae normal Corneas: corneas normal Pupils: Equal, round and reactive pupils present EOM: EOMs intact bilaterally Neck Lymphatic: no lymphadenopathy noted Neuro General: patient oriented x3 Cranial nerves: Yes Equal, round and reactive pupils present Psych Appearance: grossly normal Mental Status: mental status grossly normal Insight: Good insight present (Psych) Judgement: Good judgement present (Psych) Assessment & Plan Assessment & Plan (1) Cerumen impaction: Comment: Unable to remove cerumen with curette in office. Patient will be instructed to use Debrox drops OTC for 5-7 days and return as needed. No clinical evidence of otitis externa bilaterally. Code(s): H61.20 - Impacted cerumen, unspecified ear Qualifiers: Laterality: bilateral Qualified Code(s): H61.23 - Impacted cerumen, bilateral Plan: Debrox OTC daily x 5-7 days; return as needed for further evaluation. Coding Level of Care Code Est Pt Level 3 (04511) Diagnoses Bilateral impacted cerumen H61.23 Laterality: bilateral Time Spent (min) 25
== END 2023-09-16 11:06 | disposition home or self-care (01) ==
PROVIDERS: PCP Internal Medicine; Visit Provider Physician Assistant
DX: H61.23 Impacted cerumen, bilateral (principal)
CPT/HCPCS: 99213

== ENCOUNTER → 2023-10-10 10:04 | Outpatient (BNVA) | payer MEDICARE, SELFPAY | PROVIDERS: PCP Internal Medicine; Visit Provider Nurse Practitioner Family | DX: I25.10 Atherosclerotic heart disease of native coronary artery without angina pectoris (principal); I10 Essential (primary) hypertension; E78.5 Hyperlipidemia, unspecified | CPT/HCPCS: 99212 ==

== ENCOUNTER 2023-10-10 10:05 | Outpatient (AMB) | payer MEDICARE, SELFPAY ==
--- NOTE | 2023-10-10 10:43 | A.OFFVIS_ITS ---
Vital Signs 10/10/23 10:46 Height 5 ft 9 in Weight 183 lb 13.848 oz BMI 27.1 BP 124/60 Blood Pressure Location Lt brachial Position Sitting Pulse 74 Pulse Source Pulse Oximeter Intake Visit Reasons: 6 mth f/up Eligibility Specialist Required: No Allergies No Known Allergies [No Known Allergies*] Allergy (Verified 10/10/23 10:48) Medication List - Last Reconciled 10/10/23 by RC Bello aspirin (Adult Low Dose Aspirin) 81 mg PO DAILY atorvastatin 40 mg PO DAILY cetirizine (Zyrtec) 10 mg PO DAILY PRN cholecalciferol (vitamin D3) 25 mcg PO DAILY fluorouracil 0.5% 1 appl topical DAILY hydrocortisone-iodoquinol 1-1 % appl topical lorazepam 0.5 mg PO DAILY PRN mecobalamin (vitamin B12) 500 mcg PO DAILY mesalamine 400 mg PO ONCE metoprolol tartrate 12.5 mg PO BID mirabegron ER (Myrbetriq) 50 mg PO DAILY omeprazole 20 mg PO DAILY tamsulosin 0.4 mg PO DAILY HPI HPI 6 mth f/up: Details: Stone is a 68-year-old male past medical history of hypertension, hyperlipidemia, nonobstructive coronary artery disease who presents for follow- up. Today he reports that he has been feeling well since his last visit in March. He has no chest discomfort at rest or with exertion. He has no concerning shortness of breath with activity. No palpitations, presyncope, syncope, PND, orthopnea or edema. He has been taking his meds as directed. He uses his exercise bike 3-4 times weekly for 20 minutes. Other the weather has improved plans to walk outside more. [facility] Medical History Myocardial infarction (~1997) Overactive bladder Hypertension Hyperlipidemia Ulcerative colitis Surgical History H/O umbilical hernia repair (~2018) H/O vasectomy History of colonoscopy (~2015) Family History Mother Colon cancer Father Heart attack Social History Alcohol intake: current Alcohol intake frequency: 0-2 drinks per day Alcohol type: beer Patient Tobacco Use Status: Former Tobacco user Quit Date: 1977 Years Smoked: 5 +/- Second Hand Smoke Exposure: No Review of Systems Const All systems reviewed & are unremarkable except as noted in HPI and below ENT Denies dizziness Card Denies chest pain, Denies chest pain at rest, Denies chest pain with activity, Denies rapid heart rate, Denies pedal edema, Denies edema, Denies leg edema, Denies lightheadedness, Denies palpitations, Denies dyspnea, Denies dyspnea on exertion and Denies orthopnea Resp Denies cough, Denies dyspnea and Denies dyspnea on exertion GI Denies hematochezia and Denies change in stool character Musc Denies abnormal gait, Denies limited range of motion, Denies muscle cramps, Denies muscle weakness, Denies numbness, Denies radiating pain into limb, Denies stiffness and Denies tingling Neuro Denies abnormal gait, Denies dizziness, Denies numbness and Denies tingling Endo Denies palpitations Physical Exam Vital Signs: Last Vital Signs Pulse 74 10/10/23 10:46 BP 124/60 10/10/23 10:46 BMI result Body Mass Index 27.1 Const General: cooperative, healthy appearing, comfortable and no acute distress Orientation/consciousness: patient oriented x3 Neck Neck: Yes normal visual inspection and Yes no JVD Resp Effort & Inspection: normal respiratory effort Auscultation: clear to auscultation bilaterally, no crackles, no rales, no rhonchi and no wheezes Cardio Jugular venous distension: no JVD Rate: regular rate Rhythm: regular rhythm Heart sounds: S1 normal heart sound present, S2 normal heart sound present, no murmurs and no rubs Neuro General: patient oriented x3 Extrem General: Yes normal to inspection and No no pedal edema Psych Appearance: grossly normal Mental Status: mental status grossly normal Speech and movement: Normal speech and movement present Assessment & Plan Assessment & Plan (1) Exertional chest pain: Code(s): R07.9 - Chest pain, unspecified Category: Medical Plan: Prior Episode of exertional chest discomfort that occurred while walking back in November 2022. No recurrent episodes since that time. He previously had atypical sounding chest discomfort, likely chest wall in nature. Cardiac risk factors of hypertension and hyperlipidemia. He underwent a CTA of the coronary arteries on 03/04/2023 showing left main mild calcification less than 25% stenosis, lad mild calcification proximally less than 40% stenosis, left circumflex normal, RCA mild calcification no significant stenosis. He is now diagnosed with nonobstructive coronary artery disease. Echocardiogram done 05/03/2023 showed EF 55-60%, mild LVH, no valve abnormalities. His condition has been stable with no anginal sounding symptoms. Will continue with med management. Will have him continue on aspirin 81 mg daily indefinitely. Atorvastatin with ideal LDL goal less than 70. Labs done 07/27/2023 showed LDL 93. Recommend increasing atorvastatin up to 80 mg daily however he declines. He wants to work on increasing physical activity and have it rechecked at a later date. Recommend fasting lipid profile in 3-4 months. Signs and symptoms of angina reviewed. Cardiology follow-up in 6 months, sooner if needed. (2) CAD (coronary atherosclerotic disease): Comment: CTA of coronary arteries 03/04/2023, left main mild calcifications less than 25% stenosis, proximal LAD less than 40% stenosis, left circumflex normal, RCA mild calcification, no significant stenosis Code(s): I25.10 - Atherosclerotic heart disease of [place] coronary artery without angina pectoris Category: Medical Qualifiers: Coronary Disease-Associated Artery/Lesion type: [place] artery [place] vs. transplanted heart: [place] heart Associated angina: without angina Qualified Code(s): I25.10 - Atherosclerotic heart disease of [place] coronary artery without angina pectoris Plan: Nonobstructive coronary artery disease (3) Hypertension: Code(s): I10 - Essential (primary) hypertension Category: Medical Qualifiers: Hypertension type: primary hypertension Qualified Code(s): I10 - Essential (primary) hypertension Plan: Well controlled at present. (4) Hyperlipidemia: Code(s): E78.5 - Hyperlipidemia, unspecified Category: Medical Qualifiers: Hyperlipidemia type: unspecified Qualified Code(s): E78.5 - Hyperlipidemia, unspecified Plan: LDL goal less than 70 in patient with CAD. Not optimally controlled at present. Recommended increased atorvastatin and he declines. Plan Time spent on chart review, documentation, interview and assessment
[2023-10-10 10:46] VITALS: BP 124/60; PULSE 74; BMI 27.1
== END 2023-10-10 11:22 | disposition home or self-care (01) ==
PROVIDERS: PCP Internal Medicine; Visit Provider Nurse Practitioner Family
DX: R07.9 Chest pain, unspecified (principal); I25.10 Atherosclerotic heart disease of native coronary artery without angina pectoris; I10 Essential (primary) hypertension; E78.5 Hyperlipidemia, unspecified
CPT/HCPCS: 99214

== ENCOUNTER 2023-11-29 13:01 | Outpatient (AMB) | payer MEDICARE, SELFPAY ==
[2023-11-29 13:12] VITALS: BP 118/72; PULSE 65; TEMP 36.6; O2SAT 98; BMI 26.3
--- NOTE | 2023-11-29 13:12 | AM.OFFWIN_ITS ---
Intake Vital Signs 11/29/23 13:12 Height 5 ft 9 in Weight 178 lb BMI 26.3 BP 118/72 Blood Pressure Location Lt brachial Position Sitting Pulse 65 Pulse Source Pulse Oximeter Temp 97.8 F Temp Source Temporal Artery Scan Pulse Oximetry (%) 98 Oxygen Delivery Method Room Air Intake Visit Reasons: Sore Throat Intake Note: pt is her today for sore throat started 2 days ago Patient Tobacco Use Status: Former Tobacco user Allergies No Known Allergies [No Known Allergies*] Allergy (Verified 11/29/23 13:22) Do you need a note to return to daycare/school/sports/work: No HPI HPI Comments History of Present Illness Details the patient is a 68-year-old male in today for a sick visit. He has symptoms of sore throat x2 days, he has concern for strep throat due to exposure to 2 family members who also has strep throat. Denies fevers or chills, denies chest pain or shortness of breath, denies nausea, vomiting, diarrhea. Patient is able to eat and drink normally. [facility] Medical History Myocardial infarction (~1997) Overactive bladder Hypertension Hyperlipidemia Ulcerative colitis Surgical History H/O umbilical hernia repair (~2018) H/O vasectomy History of colonoscopy (~2015) Family History Mother Colon cancer Father Heart attack Social History Alcohol intake: current Alcohol intake frequency: 0-2 drinks per day Alcohol type: beer Patient Tobacco Use Status: Former Tobacco user Years Smoked: 5 +/- Second Hand Smoke Exposure: No Review of Systems Const All systems reviewed & are unremarkable except as noted in HPI and below Physical Exam Vital Signs: Last Vital Signs Temp 97.8 F 11/29/23 13:12 Pulse 65 11/29/23 13:12 BP 118/72 11/29/23 13:12 Pulse Ox 98 11/29/23 13:12 Oxygen Delivery Method Room Air 11/29/23 13:12 BMI result Body Mass Index 26.3 Const Other: Appearance: Alert.? Oriented X3.? No acute distress.? Head: Normocephalic.? ENT: Pharynx erythema, No exudates. No post nasal drip. ? Neck: Normal inspection.? Neck supple.? CVS: Normal heart rate and rhythm.? Pulses normal.? Respiratory: No respiratory distress.? Breath sounds normal.? Neuro: Oriented X 3.? No motor deficit.? No sensory deficit. Results AMB Rapid Strep AMB Rapid Strep Negative Last Edit by Greg Ward CMA on 11/29/23 14:25 Results Reviewed Results Reviewed: Laboratory Last Values Strep Scn [facility] Negative 11/29/23 14:24 Assessment & Plan Assessment & Plan (1) Acid reflux: Comment: patient's in office strep negative. No tonsillar exudates. Patient's pharynx his anterior pill are erythema is consistent with laryngeal reflux. Patient currently utilizing omeprazole, has been educated he can also utilize famotidine at night. Has been instructed to avoid eating foods at least 2-3 hours prior to bedtime. Has been educated to avoid trigger foods. Code(s): K21.9 - Gastro-esophageal reflux disease without esophagitis Qualifiers: Esophagitis presence: esophagitis presence not specified Qualified Code(s): K21.9 - Gastro-esophageal reflux disease without esophagitis Plan: Follow up with pcp. Orders: Orders AMB Rapid Strep Screen Today Z13.9 - Encounter for screening, unspecified Coding Level of Care Code Est Pt Level 3 (45372) Diagnoses Gastroesophageal reflux disease, unspecified whether esophagitis present K21.9 Esophagitis presence: esophagitis presence not specified Time Spent (min) 26
== END 2023-11-29 15:12 | disposition home or self-care (01) ==
PROVIDERS: PCP Internal Medicine; Visit Provider Nurse Practitioner Primary Care
DX: J02.9 Acute pharyngitis, unspecified (principal)
CPT/HCPCS: 87880; 99213

== ENCOUNTER 2024-04-12 14:26 | Outpatient (AMB) | payer MEDICARE, SELFPAY ==
--- NOTE | 2024-04-12 14:36 | MHC.OFFVIS ---
Vital Signs 04/12/24 14:37 Height 5 ft 9 in Weight 179 lb 14.355 oz BMI 26.6 BP 118/72 Blood Pressure Location Lt brachial Position Sitting Pulse 72 Pulse Source Monitor Intake Visit Reasons: r/s 04/09/24 6 mos followup Nutritionist Public Health Required: No Allergies No Known Allergies [No Known Allergies*] Allergy (Verified 04/12/24 14:39) Medication List - Last Reconciled 04/12/24 by RC Bello aspirin (Adult Low Dose Aspirin) 81 mg PO DAILY atorvastatin 40 mg PO DAILY cetirizine (Zyrtec) 10 mg PO DAILY PRN cholecalciferol (vitamin D3) 25 mcg PO DAILY fluorouracil 0.5% 1 appl topical DAILY hydrocortisone-iodoquinol 1-1 % appl topical lorazepam 0.5 mg PO DAILY PRN mesalamine 400 mg PO ONCE metoprolol tartrate 12.5 mg PO BID omeprazole 20 mg PO DAILY tamsulosin 0.4 mg PO DAILY vibegron (Gemtesa) 75 mg PO DAILY HPI HPI r/s 04/09/24 6 mos followup: Details: Stone is a 68-year-old male past medical history of hypertension, hyperlipidemia, nonobstructive coronary artery disease who presents for follow-up. Today he reports that he has been feeling well since his last visit in September. He has no chest discomfort at rest or with exertion. He has no concerning shortness of breath with activity. No palpitations, presyncope, syncope, PND, orthopnea or edema. He has been taking his meds as directed. He has been kayaking and walking without any concerning symptoms. [facility] Medical History Myocardial infarction (~1997) Overactive bladder Hypertension Hyperlipidemia Ulcerative colitis Surgical History H/O umbilical hernia repair (~2018) H/O vasectomy History of colonoscopy (~2015) Family History Mother Colon cancer Father Heart attack Sister Breast cancer Social History Alcohol intake: current Alcohol intake frequency: 0-2 drinks per day Alcohol type: beer Patient Tobacco Use Status: Former Tobacco user Years Smoked: 5 +/- Second Hand Smoke Exposure: No Review of Systems Const All systems reviewed & are unremarkable except as noted in HPI and below ENT Denies dizziness Card Denies chest pain, Denies chest pain at rest, Denies chest pain with activity, Denies rapid heart rate, Denies pedal edema, Denies edema, Denies leg edema, Denies lightheadedness, Denies palpitations, Denies dyspnea, Denies dyspnea on exertion and Denies orthopnea Resp Denies cough, Denies dyspnea and Denies dyspnea on exertion GI Denies hematochezia and Denies change in stool character Musc Denies abnormal gait, Denies limited range of motion, Denies muscle cramps, Denies muscle weakness, Denies numbness, Denies radiating pain into limb, Denies stiffness and Denies tingling Neuro Denies abnormal gait, Denies dizziness, Denies numbness and Denies tingling Endo Denies palpitations Physical Exam Vital Signs: Last Vital Signs Pulse 72 04/12/24 14:37 BP 118/72 04/12/24 14:37 BMI result Body Mass Index 26.6 Const General: cooperative, healthy appearing, comfortable and no acute distress Orientation/consciousness: patient oriented x3 Neck Neck: Yes normal visual inspection Resp Effort & Inspection: normal respiratory effort Auscultation: clear to auscultation bilaterally, no rales, no rhonchi and no wheezes Cardio Rate: regular rate Rhythm: regular rhythm Heart sounds: S1 normal heart sound present, S2 normal heart sound present, no murmurs and no rubs Neuro General: patient oriented x3 Extrem General: Yes normal to inspection, No no pedal edema and No calf tenderness Psych Appearance: grossly normal Mental Status: mental status grossly normal Speech and movement: Normal speech and movement present Office Procedures EKG Details: Today, read by me, normal sinus rhythm, no acute ST or T-wave abnormalities, rate 72, QTC 424 millisecond [id number], Complete Assessment & Plan Assessment & Plan (1) Exertional chest pain: Code(s): R07.9 - Chest pain, unspecified Category: Medical Plan: Prior Episode of exertional chest discomfort that occurred while walking back in November 2022. No recurrent episodes since that time. He previously had atypical sounding chest discomfort, likely chest wall in nature. Cardiac risk factors of hypertension and hyperlipidemia. He underwent a CTA of the coronary arteries on 03/04/2023 showing left main mild calcification less than 25% stenosis, lad mild calcification proximally less than 40% stenosis, left circumflex normal, RCA mild calcification no significant stenosis. He is diagnosed with nonobstructive coronary artery disease and this has been previously explained to him. Echocardiogram done 05/03/2023 showed EF 55-60%, mild LVH, no valve abnormalities. His condition has been stable with no anginal sounding symptoms. He reports good exercise and activity tolerance. Will continue with med management. Will have him continue on aspirin 81 mg daily indefinitely. Atorvastatin with ideal LDL goal less than 70. Labs done 07/27/2023 showed LDL 93. He has repeat labs due for his PCP and tells me he will have them obtained and sent to our office. On last visit I recommended increasing Atorvastatin up to 80 mg daily and he declined. Blood pressure is well controlled on low-dose metoprolol. Signs and symptoms of angina reviewed. Cardiology follow-up in 1 year, sooner if needed. (2) CAD (coronary atherosclerotic disease): Comment: CTA of coronary arteries 03/04/2023, left main mild calcifications less than 25% stenosis, proximal LAD less than 40% stenosis, left circumflex normal, RCA mild calcification, no significant stenosis Code(s): I25.10 - Atherosclerotic heart disease of [place] coronary artery without angina pectoris Category: Medical Qualifiers: Associated angina: without angina Coronary Disease-Associated Artery/Lesion type: [place] artery [place] vs. transplanted heart: [place] heart Qualified Code(s): I25.10 - Atherosclerotic heart disease of [place] coronary artery without angina pectoris Plan: Nonobstructive coronary artery disease (3) Hypertension: Code(s): I10 - Essential (primary) hypertension Category: Medical Qualifiers: Hypertension type: primary hypertension Qualified Code(s): I10 - Essential (primary) hypertension Plan: Well controlled at present. (4) Hyperlipidemia: Code(s): E78.5 - Hyperlipidemia, unspecified Category: Medical Qualifiers: Hyperlipidemia type: unspecified Qualified Code(s): E78.5 - Hyperlipidemia, unspecified Plan: LDL goal less than 70 in patient with CAD. Not optimally controlled at present. Recommended increased atorvastatin and he declines. Repeat labs are pending. Plan Time spent on chart review, documentation, interview and assessment Coding Level of Care Code Est Pt Level 4 (01951) Complex EM visit Add On G2211 Diagnoses Exertional chest pain R07.9 Atherosclerosis of [place] coronary artery of [place] heart without angina pectoris I25.10 Associated angina: without angina Coronary Disease-Associated Artery/Lesion type: [place] artery [place] vs. transplanted heart: [place] heart Primary hypertension I10 Hypertension type: primary hypertension Hyperlipidemia, unspecified hyperlipidemia type E78.5 Hyperlipidemia type: unspecified CPT Codes EKG - CPT: 99386-[id number], Complete ([id number]) Time Spent (min) 28
[2024-04-12 14:37] VITALS: BP 118/72; PULSE 72; BMI 26.6
== END 2024-04-12 14:58 | disposition home or self-care (01) ==
PROVIDERS: PCP Internal Medicine; Visit Provider Nurse Practitioner Family
DX: I25.10 Atherosclerotic heart disease of native coronary artery without angina pectoris (principal)
CPT/HCPCS: 93010; 99214; G2211

== ENCOUNTER → 2024-04-12 14:26 | Outpatient (BNVA) | payer MEDICARE, SELFPAY | PROVIDERS: PCP Internal Medicine; Visit Provider Nurse Practitioner Family | DX: I10 Essential (primary) hypertension (principal); I25.10 Atherosclerotic heart disease of native coronary artery without angina pectoris; E78.5 Hyperlipidemia, unspecified; R07.9 Chest pain, unspecified | CPT/HCPCS: 93005; 99212 ==

== ENCOUNTER 2024-06-05 08:10 | Outpatient (REF) | payer MEDICARE, SELFPAY ==
--- OUTSIDE RECORDS SUMMARY | 2024-06-05 08:13 | XMS_ITS | Patient Health Record ---
Author Organization [facility] Address [address] [place] [address] Care Team Providers Care Technical Support Director Name Role Phone Patel Page MD Primary Care Provider Mitesh Munroe Unavailable [phone] ALLERGIES No Known Allergies REASON FOR REFERRAL No Information MEDICATIONS Medication SIG (Take, Route, Frequency, Duration) Notes Start Date End Date Status Metoprolol Tartrate 25 MG 1 tablet Orally Twice a day 1/2 pill BID Active Mesalamine 800 MG TAKE ONE TABLET BY MOUTH TWICE A DAY for 90 Active Atorvastatin Calcium 40 MG 1 tablet Orally Once a day Active Omeprazole 20 MG 1 capsule 30 minutes before morning meal Orally Once a day Active Mesalamine 400 MG 2 Orally Twice a day for 30 day(s) Active Omeprazole 20 MG TAKE ONE CAPSULE BY MOUTH EVERY DAY for 90 Active Delzicol 400 MG take 1 capsule by mouth twice a day Orally twice a day for 30 09/20/2015 Not-Taking Lorazepam 0.5 1 tab/ NEEDED Oral three times a day takes 2 or 3 per day for anxiety Active Tamsulosin HCl 0.4 MG 1 capsule Orally Once a day for 30 day(s) Active Tolterodine Tartrate ER 4 MG 1 capsule Orally Once a day for 30 day(s) Active Vitamin D3 25 MCG (1000 UT) 1 capsule Orally Once a day for 30 day(s) Active Aspir-81 81 MG 1 tablet Orally Once a day Active IMMUNIZATIONS Vaccine Route Administration Date Status Comme nts Influenza Unknown 02/19/2020 Administered SOCIAL HISTORY Sex Assigned At : Social History Observation Description Sex Assigned At Unknown PROBLEMS Problem Type ICD Code Onset Dates Problem Status W/U Status Risk SNOMED Code Notes Problem [place] ulcerative colitis without complication (K51.90) Active confirmed 810406429 Problem Anxiety (F41.9) Active confirmed 646141 02 Problem Encounter for screening for malignant neoplasm of colon (Z12.11) Active confirmed 979294815 Problem Gastroesophageal reflux disease with esophagitis without hemorrhage (K21.00) Active confirmed 158941801 Problem Nausea (R11.0) Active confirmed 5274091 07 PLAN OF TREATMENT Future Test Test Name Order Date COLONOSCOPY 05/09/2015 COLONOSCOPY 09/18/2020 Insurance Providers Payer Name Payer Address Payer Phone Subscriber Number Group Number Insured Name Patient Relationship to Insured Coverage Start Date Coverage End Date [facility] [address] [place], [place] [id number] CHEO HUDSON Self - patient is the insured MEDICAL (GENERAL) HISTORY Medical History History ICD Code Ulcerative colitis-diagnosed in 1995 with a flexible sigmoidoscopy showing active disease to 60 cm--- followup colonoscopies in 2005 and in 2009 did not show any sign of active colitis and all biopsies; were negative for any dysplasia--- he has been treated with oral mesalamine agents, and occasional mesalamine suppositories for some rectal mucus discharge. Colonoscopy in 07/2015 normal--no active colitis, no polyps, no dysplasia, mild diverticulosis, internal hemorrhoids Hyperlipidemia Hypertension Skin cancer--basal cell and squamous ian l--Dr. Mcclendon Denies DM,CVA,Lung disease,renal disease Mild heart attack 1997-neg. cardiac cath--no problems since then--neg ETT in 11/[address] Negrete Overactive bladder/Urianary incontinence GERD-EGD 10/2020--small to mo derate-sized hiatal hernia and some reflux esophagitis--biopsies negative for King's esophagus. Gastric biopsies were negative for H. pylori and duodenal biopsies were negative for celiac disease and Giardia Colonoscopy 10/2020--no activ e colitis, polyps, nor any dysplasia within the biopsies Surgical History Surgery Date(Month/Year) Skin cancer removals with skin graft on rightforehead Vasectomy HERNIA-UMBILICAL - DR. STAPLETON 2018
[2024-06-05 08:43] LABS: Estimated Average Glucose 108 mg/dL; Hemoglobin A1C 134.0601 umol/L; Hemoglobin A1c % 5.4 % (<6.0); Total Hemoglobin (HGBA1C) 3746.6741 umol/L
[2024-06-05 08:55] LABS: Anion Gap 11 (12-20); Blood Urea Nitrogen 15 mg/dL (9-16); Carbon Dioxide 27 mmol/L (22-29); Chloride 106 mmol/L (96-108); Estimated Glomerular Filt Rate > 60; Glucose Random 103 mg/dL (60-115); Potassium 4.2 mmol/L (3.3-5.1); Sodium 140 mmol/L (135-145)
== END 2024-06-05 08:11 | disposition home or self-care (01) ==
LOC: HO.LAB 08:10
PROVIDERS: PCP Internal Medicine; Visit Provider Internal Medicine
DX: R73.01 Impaired fasting glucose (principal)
CPT/HCPCS: 36415; 80048; 83036

== ENCOUNTER 2024-12-10 08:24 | Outpatient (REF) | payer MEDICARE, SELFPAY ==
--- OUTSIDE RECORDS SUMMARY | 2024-12-10 08:36 | XMS_ITS | Patient Health Record ---
Author Organization [facility] Address [address] [place] [address] Care Team Providers Care E/M Engineer Name Role Phone Patel Page MD Primary Care Provider Mitesh Munroe Unavailable [phone] Allergies No Known Allergies Reason For Referral No Information Medications Medication SIG (Take, Route, Frequency, Duration) Notes [...] morning meal Orally Once a day Active Delzicol 400 MG take 1 capsule by mouth twice a day Orally twice a day for 30 09/20/2015 Not-Taking Lorazepam 0.5 1 tab/ NEEDED Oral three times a day takes 2 or 3 per day for anxiety Active Mesalamine 400 MG TAKE TWO CAPSULES BY MOUTH TWICE A DAY for 30 Active Tamsulosin HCl 0.4 MG 1 capsule Orally Once a day for 30 day(s) Active Tolterodine Tartrate ER 4 MG 1 capsule Orally Once a day for 30 day(s) Active Vitamin D3 25 MCG (1000 UT) 1 capsule Orally Once a day for 30 day(s) Active Omeprazole 20 MG TAKE ONE CAPSULE BY MOUTH EVERY DAY for 90 Active Aspir-81 81 MG 1 tablet Orally Once a day Active Immunizations Vaccine Route Administration Date Status Comme nts Influenza Unknown 02/19/2020 Administered Problems Problem Type SNOMED Code ICD Code Onset Dates Problem Status W/U Status Risk Notes Problem 890031456 Encounter for screening for malignant neoplasm of colon (Z12.11) Active confirmed Problem 993866780 Nausea (R11.0) Active confirmed Problem 452516023 [place] ulcera tive colitis without complication (K51.90) Active confirmed Problem 66893276 Anxiety (F41.9) Active confirmed Problem 187565999 Gastroesophageal reflux disease with esophagitis without hemorrhage (K21.00) Active confirmed Plan Of Treatment Future Test Test Name Order Date COLONOSCOPY 05/09/2015 COLONOSCOPY 09/18/2020 Insurance Providers Payer Name Payer Address Payer Phone Subscriber Number Group Number Insured Name Patient Relationship to Insured Coverage Start Date Coverage End Date [facility] [address] [place], [place] [id number] CHEO HUDSON Self - patient is the insured Medical (General) History Medical History History ICD Code Ulcerative colitis-diagnosed [...] on rightforehead Vasectomy HERNIA-UMBILICAL - DR. STAPLETON 2019
[2024-12-10 10:16] LABS: MANUAL DIFF FLAG NO
[2024-12-10 10:28] LABS: Basophils Absolute Auto 0.1 X10*3/uL (0.0-0.2); Basophils Percent Auto 0.8 % (0-2); Eosinophils Absolute Auto 0.2 X10*3/uL (0.0-0.4); Hematocrit 42.2 % (42.0-52.0); Hemoglobin 14.7 g/dl (14.0-18.0); Imm Gran Abs Auto 0.01 X10*3/uL (0.00-0.03); Imm Gran Pct Auto 0.1 % (0.0-0.4); Lymphocytes Absolute Auto 1.8 X10*3/uL (1.2-4.9); Lymphocytes Percent Auto 25.4 % (20-40); Mean Corpuscular HGB Conc 34.8 g/dl (31.0-36.0); Mean Corpuscular Hemoglobin 32.5 pg (27.0-33.0); Mean Corpuscular Volume 93.2 fL (80.0-98.0); Mean Platelet Volume 10.9 fL (9.4-12.4); Monocytes Absolute Auto 0.7 X10*3/uL (0.1-1.2); Monocytes Percent Auto 10.2 % (2-11); Neutrophils Absolute Auto 4.3 x10*3/uL (2.0-8.3); Neutrophils Percent Auto 60.5 % (45-73); Platelet Count 175 X10*3/uL (160-400); Red Blood Count 4.53 X10*6/uL (4.60-5.80); Red Cell Distribution Width 12.3 % (11.0-16.0); White Blood Count 7.1 X10*3/uL (4.8-10.8)
[2024-12-10 10:44] LABS: Estimated Average Glucose 108 mg/dL; Hemoglobin A1c % 5.4 % (<6.0); Total Hemoglobin (HGBA1C) 3609.9044 umol/L
[2024-12-10 10:49] LABS: Alanine Aminotransferase 32 U/L (0-40); Albumin Level 4.3 g/dL (3.5-5.0); Alkaline Phosphatase 56 U/L (39-117); Anion Gap 10 (12-20); Aspartate Amino Transferase 33 U/L (5-37); Bilirubin Total 0.9 mg/dL (0.0-1.0); Blood Urea Nitrogen 15 mg/dL (9-16); Calcium 8.9 mg/dL (8.4-10.2); Carbon Dioxide 28 mmol/L (22-29); Chloride 106 mmol/L (96-108); Cholesterol 168 mg/dL (<200); Estimated Glomerular Filt Rate > 60; Glucose Random 101 mg/dL (60-115); HDL Cholesterol 55 mg/dL (>40); LDL Cholesterol Calculated 96 mg/dL (<100); Magnesium 1.9 mg/dL (1.6-2.6); Sodium 140 mmol/L (135-145); Total Protein 7.1 g/dL (6.5-8.0); Triglycerides 87 mg/dL (<150)
[2024-12-10 11:05] LABS: TSH reflex Free T4 1.81 uIU/mL (0.32-4.0)
== END 2024-12-10 08:25 | disposition home or self-care (01) ==
LOC: HO.10HDL 08:24
PROVIDERS: Visit Provider Internal Medicine
DX: I10 Essential (primary) hypertension (principal); E78.00 Pure hypercholesterolemia, unspecified; R73.01 Impaired fasting glucose
CPT/HCPCS: 36415; 80053; 80061; 83036; 83735; 84443; 85025

== ENCOUNTER 2025-04-16 10:50 | Outpatient (AMB) | payer MEDICARE, SELFPAY ==
--- NOTE | 2025-04-16 10:53 | MHC.OFFVIS ---
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 Allergies No Known Allergies (No Known Allergies*) Allergy (Verified 04/12/24 14:39) Medication List - Last Reconciled 04/16/25 by Crow Negrete MD aspirin (Adult Low Dose Aspirin) 81 mg PO DAILY atorvastatin 40 mg PO DAILY cetirizine (Zyrtec) 10 mg PO DAILY PRN cholecalciferol (vitamin D3) 25 mcg PO DAILY fluorouracil 0.5% 1 appl topical DAILY hydrocortisone-iodoquinol 1-1 % appl topical lorazepam 0.5 mg PO DAILY PRN mesalamine 400 mg PO ONCE metoprolol tartrate 12.5 mg PO BID omeprazole 20 mg PO DAILY tamsulosin 0.4 mg PO DAILY vibegron (Gemtesa) 75 mg PO DAILY HPI Comments Details: Stone comes for follow-up. Overall he has been doing well from cardiac perspective. He walks frequently and walks for few miles without having any exertional symptoms. Denies any exertional chest pain or shortness of breath. Taking current atorvastatin at high-intensity 40 mg. Last LDL at 96 mg/dL. He has been eating well. Denies any other cardiac symptoms. Also takes low-dose aspirin therapy. Blood pressures been well controlled overall. Denies any prolonged palpitation irregular heartbeat. No lightheadedness, syncope. [facility] Medical History Exertional chest pain Myocardial infarction (~1997) Overactive bladder Hypertension Hyperlipidemia Ulcerative colitis Surgical History H/O umbilical hernia repair (~2018) H/O vasectomy History of colonoscopy (~2015) Family History Mother Colon cancer Father Heart attack Sister Breast cancer Social History Alcohol intake: current Alcohol intake frequency: 0-2 drinks per day Alcohol type: beer Patient Tobacco Use Status: Former Tobacco user Years Smoked: 5 +/- Second Hand Smoke Exposure: No Review of Systems Const Denies chills, Denies fatigue, Denies fever(s), Denies frequent falls, Denies weakness, Denies weight gain and Denies weight loss ENT Denies dizziness Card Denies chest pain, Denies leg edema, Denies lightheadedness, Denies palpitations, Denies dyspnea, Denies dyspnea on exertion, Denies orthopnea and Denies other (loss of consciousness) Resp Denies cough, Denies dyspnea and Denies dyspnea on exertion GI Denies hematochezia and Denies change in stool character Musc Denies abnormal gait, Denies muscle weakness, Denies numbness, Denies radiating pain into limb and Denies tingling Neuro Denies abnormal gait, Denies dizziness, Denies frequent falls, Denies numbness, Denies tingling and Denies weakness Endo Denies fatigue and Denies palpitations Physical Exam Vital Signs: Last Vital Signs Pulse 86 04/16/25 10:54 BP 116/72 04/16/25 10:54 BMI result Body Mass Index 26.4 Const General: cooperative, healthy appearing, comfortable and no acute distress Orientation/consciousness: patient oriented x3 Neck Neck: Yes normal visual inspection Resp Effort & Inspection: normal respiratory effort Auscultation: clear to auscultation bilaterally, no rales, no rhonchi and no wheezes Cardio Rate: regular rate Rhythm: regular rhythm Heart sounds: S1 normal heart sound present, S2 normal heart sound present, no murmurs and no rubs Neuro General: patient oriented x3 Extrem General: Yes normal to inspection, No no pedal edema and No calf tenderness Psych Appearance: grossly normal Mental Status: mental status grossly normal Speech and movement: Normal speech and movement present Office Procedures EKG Details: EKGs shows normal sinus rhythm with Q-waves in lead 3 and AVF most likely pseudo inferior infarct pattern [id number], Complete Assessment & Plan Assessment & Plan (1) CAD (coronary atherosclerotic disease): Comment: CTA of coronary arteries 03/04/2023, left main mild calcifications less than 25% stenosis, proximal LAD less than 40% stenosis, left circumflex normal, RCA mild calcification, no significant stenosis Code(s): I25.10 - Atherosclerotic heart disease of [place] coronary artery without angina pectoris Category: Medical Qualifiers: Associated angina: without angina Coronary Disease-Associated Artery/Lesion type: [place] artery [place] vs. transplanted heart: [place] heart Qualified Code(s): I25.10 - Atherosclerotic heart disease of [place] coronary artery without angina pectoris Plan: Patient with CAD with diffuse but mild coronary atherosclerosis by coronary CTA. Overall doing well with no cardiac symptoms at current point time. He does have mildly increased wall thickness of unclear significance. Blood pressure is well optimized at this point time. Encouraged to continue low-dose aspirin therapy. Continue high-intensity statin therapy but LDL is not well optimized. Discussed either further upping the dose of atorvastatin or adding ezetimibe therapy. He does not want to increase atorvastatin therapy. Will add ezetimibe 10 mg to his regimen. Follow-up lipid panel in 3 months time. Target goal LDL less than 70 mg/dL. Encouraged to maintain activity level as tolerated. Goals of therapy and management of coronary atherosclerosis was discussed in details. Will follow up in the clinic in 1 year's time, sooner PRN. Thank you for allowing me to partake in his care Orders: Orders Lipid Panel 3 Months I25.10 - Atherosclerotic heart disease of [place] coronary artery without angina pectoris Medications: New ezetimibe 10 mg PO DAILY 30 tabs 5RF Coding Level of Care Code Est Pt Level 4 (86457) Complex EM visit Add On G2211 Diagnoses Atherosclerosis of [place] coronary artery of [place] heart without angina pectoris I25.10 Associated angina: without angina Coronary Disease-Associated Artery/Lesion type: [place] artery [place] vs. transplanted heart: [place] heart CPT Codes EKG - CPT: 42812-[id number], Complete ([id number])
[2025-04-16 10:54] VITALS: BP 116/72; PULSE 86; BMI 26.4
--- OUTSIDE RECORDS SUMMARY | 2025-04-16 13:54 | XMS_ITS | Patient Health Record ---
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 Role Phone Patel Page MD Primary Care Provider Mitesh Munroe Unavailable [phone] Allergies No Known Allergies Reason For Referral No Information Medications Medication SIG (Take, Route, Frequency, Duration) Notes Start Date End Date Status Metoprolol Tartrate 25 MG 1 tablet Orally Twice a day 1/2 pill BID Active Mesalamine 800 MG TAKE ONE TABLET BY MOUTH TWICE A DAY; Duration: 90 Active Atorvastatin Calcium 40 MG 1 tablet Orally Once a day Active Omeprazole 20 MG 1 capsule 30 minutes before morning meal Orally Once a day Active Delzicol 400 MG take 1 capsule by mouth twice a day Orally twice a day; Duration: 30 09/20/2015 Not-Taking Lorazepam 0.5 1 tab/ NEEDED Oral three times a day takes 2 or 3 per day for anxiety Active Mesalamine 400 MG TAKE TWO CAPSULES BY MOUTH TWICE A DAY; Duration: 30 Active Tamsulosin HCl 0.4 MG 1 capsule Orally Once a day; Duration: 30 day(s) Active Tolterodine Tartrate ER 4 MG 1 capsule Orally Once a day; Duration: 30 day(s) Active Vitamin D3 25 MCG (1000 UT) 1 capsule Orally Once a day; Duration: 30 day(s) Active Omeprazole 20 MG TAKE ONE CAPSULE BY MOUTH EVERY DAY; Duration: 90 Active Aspir-81 81 MG 1 tablet Orally Once a day Active Immunizations Vaccine Route Administration Date Status Comme nts Influenza Unknown 02/19/2020 Administered Problems Problem Type SNOMED Code ICD Code Onset Dates Problem Status W/U Status Risk Notes Problem Screening for malignant neoplasm of colon (779219947) Encounter for screening for malignant neoplasm of colon (Z12.11) Active confirmed Problem Nausea (802851689) Nausea (R11.0) Active confir med Problem Ulcerative colitis (81549854) Duncan ulcerative colitis without complication (K51.90) Active confirmed Problem Anxiety (05869410) Anxiety (F41.9) Active confi rmed Problem Gastroesophageal reflux disease with esophagitis (disorder) (666492834) Gastroesophageal reflux disease with esophagitis without hemorrhage (K21.00) Active confirmed Plan Of Treatment Future Test Test Name Order Date COLONOSCOPY 05/09/2015 COLONOSCOPY 09/18/2020 Insurance Providers Payer Name Payer Address Payer Phone Subscriber Number Group Number Insured Name Patient Relationship to Insured Coverage Start Date Coverage End Date [facility] [address] [place], [place] [id number] [phone] [id number] CHEO HUDSON Self - patient is the [...] graft on rightforehead Vasectomy [facility]-UMBIL[facility] - DR. TSAPLETON 2019
== END 2025-04-16 11:14 | disposition home or self-care (01) ==
LOC: HO.HCS 10:51
PROVIDERS: PCP Internal Medicine; Visit Provider Internal Medicine Cardiovascular Disease
DX: I25.10 Atherosclerotic heart disease of native coronary artery without angina pectoris (principal)
CPT/HCPCS: 93010; 99214; G2211

== ENCOUNTER → 2025-04-16 10:50 | Outpatient (BNVA) | payer MEDICARE, SELFPAY | PROVIDERS: PCP Internal Medicine; Visit Provider Internal Medicine Cardiovascular Disease | DX: I25.10 Atherosclerotic heart disease of native coronary artery without angina pectoris (principal); R94.31 Abnormal electrocardiogram [ECG] [EKG] | CPT/HCPCS: 93005; 99212 ==